=== PATIENT | male | born 1965 | race Caucasian/White ===

== ENCOUNTER 2018-04-27 02:05 | Observation (INO) | payer BC ==
[~2018-04-27] VITALS: Ht 177.8 cm; Wt 156.9 kg
--- NOTE | ~2018-04-27 | OP ---
PATIENT NAME: HUSEYIN DAVID MEDICAL RECORD: [id number] :69 LOCATION:D.M2 D.2115 ADMISSION DATE:04/27/18 SURGEON: BECCA MORALEZ MD DATE OF OPERATION: 04/29/2018 PROCEDURE: EGD with balloon dilatation, EGD with biopsy. TANK FILLER: Becca Moralez MD SCOPE: Olympus video colonoscope. MEDICATIONS PROVIDED: 240 mg of propofol, O2 4 liters. INDICATION FOR THE PROCEDURE: Atypical chest pain, nausea, vomiting, early satiety and dysphagia. FINDINGS: Informed consent was given. The patient was made comfortable with the above medications. After reaching an adequate level of sedation by slow IV push, the patient was placed on his left side. The endoscope was then advanced under direct visualization through the posterior pharyngeal area and advanced to the distal esophagus. At the distal esophageal area, a Schatzki's ring was appreciated which was noted to be stenotic and a CRE Microvasive balloon was placed in this same area, inflated to 60-Portuguese, held in place for 1 minute without complication. This balloon was then withdrawn. We noted that the patient had erosions at the distal esophageal area and biopsies were obtained. On entering the stomach, we did retroflex at that point and the cardia and fundus had mild inflammation. No ulcers, no erosions. We then proceeded to the end of stomach where streaking erythema, edema and congestion, was appreciated at the antral area. Biopsies were taken looking for the presence of Helicobacter pylori. A few erosions were seen. The duodenal bulb through the C-loop had significant inflammation with wall thickening, congestion, irritation. No ulcerations, but erosions were present. Photo documentation and biopsies were obtained. The second part of the duodenum also had a mild amount of inflammation and this area was also biopsied. The scope was then withdrawn. IMPRESSION: 1. Distal esophageal Schatzki's ring, determined to be stenotic dilated to 60-Portuguese without complication. 2. Erosive esophagitis. 3. Small sliding hiatal hernia. 4. Erosive distal antritis without ulcerations, biopsied. 5. Erosive inflamed mucosa in the duodenal bulb and C loop, biopsied. 6. Mild inflammation in the second part of the duodenum. Biopsies obtained. PLAN: We will continue the patient on Protonix at a dose of 40 mg p.o. every morning and add famotidine 40 mg p.o. at bedtime. The patient will also be provided with Carafate slurry 1 g p.o. q.i.d. At this point, we feel we can advance his diet to a soft diabetic diet. Return to clinic on a p.r.n. basis. Of note, the patient will be given instructions for reflux precautions. He is to avoid chocolate, tomato, citrus, caffeine, fatty foods, peppermint No tobacco, no alcohol. He should not eat late at night and should sit up for at least 2 hours after every meal. Should he reflux at night, he should sleep with the head of the bed elevated. OPERATIVE REPORT [id number] HUSEYIN DAVID TRANSINT:[id number] Voice Confirmation ID: [id number] DOCUMENT ID: [id number] BECCA MORALEZ MD at 1304 CC: WOODROW CAIN MD [id number] DICTATION DATE: 04/29/18 1549 BARBER SHOP MANAGER: 04/29/18 2018 DIS IN 04/30/18 [place] [id number] [place] [address]
--- NOTE | ~2018-04-27 | CN ---
PATIENT NAME:HUSEYIN DAVID MEDICAL RECORD: [id number] : 69 LOCATION:[facility] D.2115 ADMIT DATE: 04/27/18 ACCOUNT: [id number] CONSULTING PHYSICIAN: AAMNDA ZAMARRIPA MD REFERRING PHYSICIAN: WOODROW CAIN MD DATE OF CONSULTATION: 04/27/2018 HISTORY: A 52-year-old gentleman with somewhat of a vague cardiac history, has been told from [place] and [place] that he has a cardiomyopathy for various reasons and congenital, transferred from [place] with abnormal ECG and elevated CK and CK-MB. Troponin was negative. He also has a history of a TIA-type symptomatology with vision changes, these are typically positional, yesterday was complaining of blanca syncopal episode. Does not have any residual. At this point, has a strong family history of coronary artery disease as well as cerebrovascular disease. We were asked to see him concerning his cardiovascular status. PAST MEDICAL HISTORY: Includes, 1. History of hypertension. 2. Questionable history of cardiomyopathy. 3. Questionable history of cerebrovascular disease. 4. Diabetes mellitus. 5. Hypertension. MEDICATIONS: Include carvedilol 12.5 b.i.d., lisinopril 20 every day, amlodipine 10 daily, and metformin 500 b.i.d. SOCIAL HISTORY: Lives close to [place], works as a national dedicated truck driver. Able to take care of his ADLs. REVIEW OF SYSTEMS: The patient reports easy bruising but reports no swollen glands. The patient reports no fever, no night sweats, no significant weight gain, no significant weight loss. No significant exercise tolerance. The patient reports no dry eyes, no irritation, no vision change. Patient reports no difficulty hearing and no ear pain. Patient reports no frequent nose bleeds or nose and sinus problems. Patient reports on arm pain on exertion. No shortness of breath while lying down. No history of heart murmur. Patient reports no cough, no wheezing or coughing up blood. Patient reports no abdominal pain, no vomiting. Normal appetite. No diarrhea and not vomiting blood. No nausea and no constipation. Patient reports no incontinence. No difficulty urinating. No hematuria. No increased frequency. Patient reports no muscle aches. No weakness, no arthralgias, no back pain. No swelling of the extremities. Patient reports no abnormal mole, no jaundice, no rashes. Reports no loss of consciousness. No weakness and no numbness. No seizures, dizziness, or headaches. The patient reports no depression, no sleep disturbance, feeling safe in a relationship and no alcohol abuse. Patient reports on fatigue. Reports no runny nose or sinus pressure. No itching, no hives, and no frequent sneezing. PHYSICAL EXAMINATION: GENERAL: Pleasant gentleman in no acute distress. Appeared her stated age. VITAL SIGNS: 140/77, pulse 54 and regular. HEENT: Normocephalic, atraumatic. NECK: No JVD or bruit. HEART: Regular. CONSULT REPORT [id number] HUSEYIN DAVID LUNGS: Fair excursion, has some crackles, clear mostly with inspiration. ABDOMEN: Soft, nontender. EXTREMITIES: Pulses are 2+. There is 2+ edema. NEUROLOGIC: Grossly intact. DIAGNOSTIC DATA: ECG shows LVH, left axis deviation, left anterior fascicular block. IMPRESSION: Cardiomyopathy, acute coronary syndrome, and transient ischemic attack. At this point in time, we will plan for diagnostic angiography, intervention based on above. TRANSINT:[id number] Voice Confirmation ID: [id number] DOCUMENT ID: [id number] AMANDA ZAMARRIPA MD at 2229 CC: [id number] DICTATION DATE: 04/27/18850 REGISTERED NURSE SUPERVISOR: 04/27/18 1219 ADM IN [place] [id number] [place] [id number]
--- NOTE | ~2018-04-27 | MORECARE ---
CASE MANAGEMENT DISCHARGE SUMMARY PATIENT: HUSEYIN DAVID UNIT: [id number] ADM DATE: 04/27/18 AGE: 52 : [birth year] SEX: M ROOM/BED: D.2115 AUTHOR: REYNA FREED PHYSICIAN: REFERRING PHYSICIAN: WOODROW CAIN MD DATE OF SERVICE: 05/03/18 Discharge Plan Patient Name: HUSEYIN DAVID Facility: [facility]:[place] : 1965 Planned Disposition: Home Anticipated Discharge Date: 04/30/18 Discharge Date: 04/30/2018 Expected LOS: 3 Initial Reviewer: [email or web address] Initial Review Date: 05/03/2018 Generated: 05/03/18 9:53 am Patient Name: HUSEYIN DAVID Page [id number] at 0853 All edits/amendments must be made on the electronic document DICTATION DATE: 05/03/18851 AUTOMATIC DIE CUTTING MACHINE OPERATOR: KRISTINE 05/03/18851 RPT#: [id number] DC DATE:04/30/18 STATUS: DIS IN [facility] [address] [place] [address] END OF REPORT
--- NOTE | ~2018-04-27 | HEMODYNAMI ---
PATIENT:HUSEYIN DAVID MEDICAL RECORD: [id number] : 69 [facility] [id number] ADMISSION DATE: 04/27/18 Generatedon:04/27/201816:20 Patient name: HUSEYIN DAVID Patient #: [id number] SSN: : 1965 Date of study: 04/27/2018 Page: Of Hemodynamic Procedure Report Patient Data Patient Demographics Procedure consent was obtained First Name: HUSEYIN Gender: Male Last Name: FRANKIE : 1965 Patient #: [id number] Age: 52 year(s) Race: Unknown Additional ID: [id number] Contact details [address]: [address] [place] [address] State: [place] City: [place] Zip code: [address] Past Medical History Allergies: No known allergies Admission Admission Data Admission Date: 04/27/2018 Admission Time: 4:13 Room #: 2115 Lab Results Lab Result Date: 04/27/2018 Lab Result Time: 0:00 Biochemistry Name Units Result Min Max BUN mg/dl 16 --(---*)-- 7 18 Creatinine mg/dl 0.9 --(-*--)-- 0.6 1.3 CBC Name Units Result Min Max Hemoglobin g/dl 13.6 --(*---)-- 13.5 17.5 Procedure Procedure Types Cath Procedure Diagnostic Procedure LHC LHC w/Coronaries Sedation Charges Moderate Sedation up to 15 minutes Peripheral Cath Diagnostic Procedure Compotype Operator Peripheral Procedures Four Vessel Arteriogram Procedure Description Procedure Date Procedure Date: 04/27/2018 Procedure Start Time: 15:56 Procedure End Time: 16:13 Procedure Staff Name Function Joleen Ambrose RT Monitor Flor Wilkins RT Scrub Yasemin Ho RN Nurse Todd Briceño MD Performing Physician Procedure Data Cath Procedure Fluoroscopy Diagnostic fluoroscopy Total fluoroscopy Time: 3.8 time: 3.8 min min Diagnostic fluoroscopy Total fluoroscopy dose: dose: 1353 mGy 1353 mGy Contrast Material Contrast Material Type Amount (ml) Isovue 300 112 Entry Location Entry Primary Successful Side Size Upsize Upsize Entry Closure Succes sful Closure Location (Fr) 1 (Fr) 2 (Fr) Remarks Device Remarks Femoral Right 5 Fr Exoseal artery Estimated blood loss: 5 ml Diagnostic catheters Device Type Used For End Catheter Placement Medtronic Dexterity 5Fr Procedure JL 4.0 catheter (NO COST SUPPLY) Medtronic Dexterity 5Fr Procedure 3DRC catheter (NO COST SUPPLY) Medtronic Dexterity 5Fr Procedure Pigtail catheter(NO COST SUPPLY) Procedure Complications No complications Procedure Medications Medication Administration Route Dosage 0.9% NaCl I.V. 100 ml/hr Oxygen etCO2 Nasal cannula 2 l/min Lidocaine 2% added to field 20 Heparin Flush Bag added to field 2 bags (1000units/500ml NS) Versed I.V. 2 mg Fentanyl I.V. 50 mcg Hemodynamics Rest Heart Rate: 66 (bpm) Pressure Samples Time Site Value (mmHg) Purpose Heart Use Rate(bpm) 16:07 LV 174/8,24 Snapshot 66 16:08 LV 172/14,18 Snapshot 66 16:09 AO 178/91(129) Pullback 71 16:09 LV 181/7,34 Pullback 71 Gradients Valve Time Site 1 Site 2 Mean SEP/DFP Peak To Heart Use (mmHg) (sec/min) Peak Rate (mmHg) (bpm) Aortic 16:09 LV AO 9 17 3 71 181/7,34 178/91(129) Calculations Valve P-P Mean Valve Index Valve Source Name Gradient Area Flow (cm2) Aortic 3 9 3 9 Snapshots Pre Cath Intra NCS Post Cath Vital Signs Time Heart Resp SPO2 etCO2 NIBP (mmHg) Rhythm Pain Sedation Rate (ipm) (%) (mmHg) Status Level (bpm) 15:49:45 66 18 96 32.3 204/125(155) NSR 0 (11) 10(A) , No pain 15:54:25 66 19 97 20.4 212/130(169) NSR 0 (11) 10(A) , No pain 15:59:02 64 18 97 29.4 200/128(184) NSR 0 (11) 10(A) , No pain 16:03:40 67 18 98 27.2 212/138(174) NSR 0 (11) 10(A) , No pain 16:08:19 64 18 97 21.1 217/133(164) NSR 0 (11) 10(A) , No pain 16:13:02 72 20 98 22 196/135(163) NSR 0 (11) 10(A) , No pain Medications Time Medication Route Dose Verified Delivered Reason Notes Eff ectiveness by by 15:47:28 0.9% NaCl I.V. 100 Stuart Yasemin used for ml/hr [facility] Ho procedure MD ARDON 15:47:35 Oxygen etCO2 2 Stuart Yasemin used for Nasal l/min [place] [facility] procedure cannula MD ARDON 15:47:40 Lidocaine 2% added 20ml Stuart Stuart for local to vial [facility] anesthetic field MD WHITE 15:47:47 Heparin Flush added 2 Stuart Stuart used for Bag to bags [facility] procedure (1000units/500ml field MD WHITE NS) 15:54:09 Fentanyl I.V. 50 Todd Yasemin used for mcg [place] Ho fishing worker 15:54:48 Versed I.V. 2 mg Todd Yasemin used for Navarro rodriguez emergency spill response technician Log Time Note 15:19:15 Signed procedure consent form obtained from patient. 15:19:18 Flor Wilkins RT(R) sent for patient. Start room use. 15:19:18 Time tracking: Regular hours (M-F 7:00 - 5:00) 15:19:22 Plan of Care:Hemodynamics will remain stable., Cardiac rhythm will remain stable., Comfort level will be maintained., Respiratory function will remain adequate., Patient/ family verbilizes understanding of procedure., Procedure tolerated without complication., Recovers from procedure without complications.. 15:20:24 H&P Date Dictated: 04/27/2018 Within 30 days and on chart., H&P Addendum completed by physician on day of procedure. (MUST COMPLETE FOR ALL OUTPATIENTS). 15:20:40 Patient allergic to No known allergies ::43 Lab Result : BUN 16 mg/dl :: Lab Result : Hemoglobin 13.6 g/dl ::43 Lab Result : Creatinine 0.9 mg/dl 15:39:17 Patient received from Med II to CCL 1 Alert and oriented. Tansferred to table in Supine position. 15:39:19 Warm blankets applied, and rodney hugger turned on for patient comfort. 15:39:20 Correct patient and procedure confirmed by team. 15:39:20 ECG and BP/O2 sat monitors applied to patient. 15:47:12 Vital chart was started 15:47:28 0.9% NaCl 100 ml/hr I.V. was administered by Yasemin Ho RN; used for procedure; 15:47:35 Oxygen 2 l/min etCO2 Nasal cannula was administered by Yasemin Ho RN; used for procedure; 15:47:40 Lidocaine 2% 20ml vial added to field was administered by Stuart Sagastume MD; for local anesthetic; 15:47:47 Heparin Flush Bag (1000units/500ml NS) 2 bags added to field was administered by Stuart Sagastume MD; used for procedure; 15:52:36 Pre-procedure instructions explained to patient. 15:52:36 Pre-op teaching completed and patient verbalized understanding. 15:52:38 Family in patients room. 15:52:40 Patient NPO since Midnight. 15:53:11 Is the patient allergic to Iodine/contrast media? No. 15:53:13 Is patient on blood thinner?No 15:53:14 Patient diabetic? Yes. 15:53:15 If diabetic: On Metformin? Yes 15:53:18 If on Metformin: Last Dose? 04/25/2018 15:53:23 Previous problem with sedation/anesthesia? No ? 15:53:24 Snore? Yes 15:53:24 Sleep apnea? Yes 15:53:25 Deviated septum? No 15:53:27 Opens mouth fully? Yes 15:53:27 Sticks out tongue? Yes 15:53:31 Airway obstruction? Yes ASTHMA 15:53:35 Dentures? No ? 15:53:38 Pre procedure: right dorsailis pedis pulse 1+ Palpable, but thready & weak; easily obliterated 15:53:41 Patient pain scale 0/10 ?. 15:53:45 IV patent on arrival in right hand with 0.9% NaCl at [facility]. 15:53:47 Lab results completed and on chart. 15:53:49 Right groin area was prepped with chlora-prep and draped in sterile fashion 15:53:50 Alarms reviewed by R. N. 15:53:50 Sharps counted by scrub and verified by R.N. 15:53:51 --------ALL STOP TIME OUT------ 15:53:51 Final Timeout: patient, procedure, and site verified with staff and physician. All members of the team are in agreement. 15:53:54 Right groin site verified by team. 15:53:56 Physical assessment completed. ASA score P 2 - A patient with mild systemic disease as per Todd Briceño MD. 15:54:04 Sedation plan: IV Moderate Sedation Medication:Versed, Fentanyl 15:54:09 Fentanyl 50 mcg I.V. was administered by Yasemin Ho RN; used for procedure; 15:54:48 Versed 2 mg I.V. was administered by Yasemin Ho RN; used for procedure; 15:55:05 Procedure started. 15:55:05 Full Disclosure recording started 15:56:36 Local anesthetic to right femoral artery with Lidocaine 2% by Todd Briceño MD.INITIAL ACCESS ONLY 15:56:41 Zero performed for pressure channel P1 15:56:57 Use device set Femoral Dx 15:57:00 ACIST Syringe (33751) opened to sterile field. 15:57:01 Bag Decanter (2002) opened to sterile field. 15:57:02 ACIST Hand Control (97583) opened to sterile field. 15:57:02 ACIST Manifold (86188) opened to sterile field. 15:57:03 SHEATH Prelude 5Fr 0.035 ([id number]-6N-76-035) opened to sterile field. 15:57:05 Tegaderm 4 x 4 (1626W) opened to sterile field. 15:57:06 Medline Cath Pack ([id number]) opened to sterile field. 15:57:06 DIAGNOSTIC WIRE .035 260cm J wire (892677) opened to sterile field. 15:57:14 Zero performed for pressure channel P1 15:57:46 Zero performed for pressure channel P1 15:57:53 Zero performed for pressure channel P1 15:58:06 A 5 Fr sheath was inserted into the Right Femoral artery 15:58:13 Zero performed for pressure channel P1 15:58:59 Zero performed for pressure channel P1 15:59:24 A [employer] Dexterity 5Fr JL 4.0 catheter (NO COST SUPPLY) was advanced over the wire and used for Procedure. 16:00:44 LCA angiography performed. 16:00:46 Catheter exchanged over wire. 16:01:55 A Medtronic Dexterity 5Fr 3DRC catheter (NO COST SUPPLY) was advanced over the wire and used for Procedure. 16:02:21 RCA angiography performed. 16:04:02 Right carotid angiography performed. 16:05:39 Left carotid angiography performed. 16:06:11 Catheter exchanged over wire. 16:06:44 A Medtronic Dexterity 5Fr Pigtail catheter(NO COST SUPPLY) was advanced over the wire and used for Procedure. 16:07:09 LV gram done using YODER 16:07:11 Injector settings: Ml/sec: 10, Volume: 20, 16::44 LV hemodynamics recorded. 16:08:44 EF : 40 % 16:09: Catheter removed. 16:09:07 EXOSEAL 5Fr (EX500) opened to sterile field. 16:10:03 Sheath removed intact; hemostasis achieved with Exoseal to the Right Femoral artery. 16:10:14 Procedure ended.(Physican Out) 16:10:31 Fluoroscopy time 03.80 minutes. 16:10:37 Fluoroscopy dose: 1353 mGy 16:10:37 Flurop Dose total: 1353 16:10:47 Contrast amount:Isovue 300 112ml. 16:11:04 Sharps counted by scrub and verified by R.N. 16:11:08 Post-op/insertion site Right Femoral artery dressed using a 4 x 4 and Tegaderm. 16:11:12 Post right femoral artery:stable, soft, clean and dry 16:11:18 Post-procedure physical assessment completed. ASA score P 2 - A patient with mild systemic disease as per Todd Briceño MD. 16:11:21 Post procedure rhythm: sinus rhythm 16:11:23 Estimated blood loss: 5 ml 16:11:24 Post procedure instruction explained to patient.Patient verbalizes understanding. 16:11:25 Patient needs reinforcement of post procedure teaching. 16:12:08 Procedure type changed to Cath procedure, Diagnostic procedure, LHC, LHC w/Coronaries, Sedation Charges, Moderate Sedation up to 15 minutes, Peripheral Cath Diagnostic Procedure, Compotype Operator Peripheral Procedures, Four Vessel Arteriogram 16:12:50 Procedure and supply charges have been captured, reviewed, submitted and are correct. 16:12:53 Procedure Complication : No complications 16::55 Vital chart was stopped 16:12:55 See physician's report for complete and final results. 16:12:57 Report given to PCU. 16:12:59 Patient transfered to PCU with Bed. 16:13:03 Procedure ended. 16:13:03 Full Disclosure recording stopped 16:13:06 End room use (Document Last) Device Usage Item Name Manufacture Quantity Catalog Number Hospital Part Current M inimal Lot# / Charge Number Stock Stock Serial# Code ACIST Syringe Acist 1 68865 742204 171346 650022 2 0 (53757) [employer] Bag Decanter Microtek 1 2001S 868409 79257 754817 5 () [employer] Inc[employer] ACIST Hand Acist 1 70193 739608 547545 924191 5 Control (09532) [employer] ACIST Manifold Acist 1 19453 935623 823296 523740 5 (46303) [employer] SHEATH Prelude Merit 1 [id number] 997004 912891 752701 5 5Fr 0.035 Medical ([id number]) Tegaderm 4 x 4 3M 1 1626W 321146 841716 314126 5 (1626W) Medline Cath Medline 1 [id number] 142552 86836 882124 5 Pack ([id number]) DIAGNOSTIC WIRE [facility] [place] 1 159504 203269 084546 685776 3 0 .035 260cm J wire (340172) Medtronic Medtronic 1 [id number] 904697 909980 5 Dexterity 5Fr JL 4.0 catheter (NO COST SUPPLY) Medtronic Medtronic 1 [id number] 435926 035942 5 Dexterity 5Fr 3DRC catheter (NO COST SUPPLY) Medtronic Medtronic 1 [id number] 009649 773460 5 Dexterity 5Fr Pigtail catheter(NO COST SUPPLY) EXOSEAL 5Fr Cardinal 1 EX500 837194 977663 320755 1 0 (EX500) Health Signature Audit [place] Stage Time Signature Unsigned Intra-Procedure 04/27/2018 Joleen Ambrose 4:20:47 PM RT(R) Signatures Monitor : Joleen Ambrose Signature : RT Date : Time : [place] [id number] [place] [address]
[2018-04-27] MEDS ORDERED: ZESTORETIC 20-1 EACH PO ×2 (02:12→04:50)
[2018-04-27] MEDS ORDERED: BAYER CHEWABLE81 MG PO (02:12)
[2018-04-27] MEDS ORDERED: GLUCOPHAGE500 MG PO (02:12)
[2018-04-27 02:43] VITALS: BP 161/92
[2018-04-27 02:43] LABS: CKMB 14.5 U/L (0.0-3.6); CREATINE KINASE 390 UL (21-232); TROPONIN-I 0.023 ng/mL (0.000-0.060)
[2018-04-27 04:20] VITALS: BP 145/94
[2018-04-27] MEDS ORDERED: COREG12.5 MG PO (04:50)
[2018-04-27] MEDS ORDERED: NORVASC10 MG PO (04:51)
[2018-04-27 07:44] VITALS: BP 140/77
[2018-04-27 10:56] LABS: BASOPHILS 0.8 % (0-2); EOSINOPHILS 2.5 % (0-7); HEMATOCRIT 42.1 % (42.0-54.0); HEMOGLOBIN 13.6 g/dL (13.5-17.5); IMMATURE GRANULOCYTES 0.1 % (0-5); LYMPHOCYTES 32.7 % (15-50); MCH 29.6 pg (26.0-34.0); MCHC 32.3 g/dL (31.0-37.0); MCV 91.5 fL (80.0-100.0); MEAN PLATELET VOLUME 10.2 fL (7.4-10.4); MONOCYTES 4.8 % (2-11); NEUTROPHILS 59.1 % (40-80); PLATELET COUNT 141 10x3/uL (130-400); RDW 13.1 % (11.5-14.5); WBC 7.7 10x3/uL (4.8-10.8)
[2018-04-27 11:11] LABS: CALC OSMOLALITY 287 mosm/kg (275-300); CALCIUM 8.6 mg/dL (8.5-10.1); CARBON DIOXIDE 28.8 mmol/L (21.0-32.0); CHLORIDE - SERUM 105 mmol/L (98-107); CREATININE - SERUM 0.9 mg/dL (0.6-1.3); GLUCOSE 202 mg/dL (74-106); POTASSIUM - SERUM 3.9 mmol/L (3.5-5.1); SODIUM 141 mmol/L (136-145); UREA NITROGEN 16 mg/dL (7-18); eGFR NON AFRICAN AMERICAN > 90 mL/min (90-120)
[2018-04-27 11:24] VITALS: BP 152/87
[2018-04-27 13:42] VITALS: Ht 177.8 cm; Wt 156.9 kg
[2018-04-27 20:00] VITALS: BP 164/98
[2018-04-28] VITALS: BP 161/91
[2018-04-28 04:00] VITALS: BP 165/87
[2018-04-28 06:13] LABS: BASOPHILS 0.5 % (0-2); EOSINOPHILS 3.1 % (0-7); HEMATOCRIT 41.8 % (42.0-54.0); HEMOGLOBIN 13.3 g/dL (13.5-17.5); IMMATURE GRANULOCYTES 0.1 % (0-5); MCH 29.6 pg (26.0-34.0); MCHC 31.8 g/dL (31.0-37.0); MCV 92.9 fL (80.0-100.0); MEAN PLATELET VOLUME 10.4 fL (7.4-10.4); MONOCYTES 7.1 % (2-11); NEUTROPHILS 58.2 % (40-80); PLATELET COUNT 142 10x3/uL (130-400); RDW 13.2 % (11.5-14.5); WBC 7.7 10x3/uL (4.8-10.8)
[2018-04-28 06:18] LABS: INR 1.08 (0.85-1.17); PROTIME 13.6 SECONDS (11.6-15.0)
[2018-04-28 07:16] LABS: ALBUMIN 3.2 g/dL (3.4-5.0); ALKALINE PHOSPHATASE 44 U/L (46-116); ALT (SGPT) 54 U/L (10-68); AMYLASE - SERUM 44 U/L (25-115); BILIRUBIN - TOTAL 0.44 mg/dL (0.2-1.3); CALCIUM 8.6 mg/dL (8.5-10.1); CARBON DIOXIDE 31.2 mmol/L (21.0-32.0); CHLORIDE - SERUM 105 mmol/L (98-107); CHOL - HDL RATIO 5.1 ratio (2.3-4.9); CHOLESTEROL, TOTAL 167 mg/dL (0-200); CKMB 10.9 U/L (0.0-3.6); HDL CHOLESTEROL 33 mg/dL (32-96); LDL CHOLESTEROL 110 mg/dL (0-100); LDL-HDL RATIO 3.3 ratio (1.5-3.5); LIPASE 72 U/L (73-393); POTASSIUM - SERUM 3.7 mmol/L (3.5-5.1); PROTEIN - SERUM 6.8 g/dL (6.4-8.2); SODIUM 142 mmol/L (136-145); TRIGLYCERIDE 120 mg/dL (30-200); UREA NITROGEN 14 mg/dL (7-18); eGFR NON AFRICAN AMERICAN 84 mL/min (90-120)
[2018-04-28 07:38] LABS: CALC OSMOLALITY 285 mosm/kg (275-300); CREATINE KINASE 268 UL (21-232); GLUCOSE 129 mg/dL (74-106)
[2018-04-28 07:40] LABS: TROPONIN-I 0.147 ng/mL (0.000-0.060)
[2018-04-28 08:14] VITALS: BP 170/85
[2018-04-28 11:52] VITALS: BP 194/93
[2018-04-28 15:03] VITALS: BP 179/97
[2018-04-28 20:00] VITALS: BP 141/76
[2018-04-29] VITALS: BP 151/89
[2018-04-29 04:00] VITALS: BP 146/78
[2018-04-29 06:15] LABS: BASOPHILS 0.4 % (0-2); EOSINOPHILS 2.7 % (0-7); HEMATOCRIT 41.9 % (42.0-54.0); HEMOGLOBIN 13.6 g/dL (13.5-17.5); IMMATURE GRANULOCYTES 0.1 % (0-5); LYMPHOCYTES 25.2 % (15-50); MCH 29.4 pg (26.0-34.0); MCHC 32.5 g/dL (31.0-37.0); MEAN PLATELET VOLUME 10.7 fL (7.4-10.4); MONOCYTES 5.9 % (2-11); NEUTROPHILS 65.7 % (40-80); PLATELET COUNT 154 10x3/uL (130-400); RBC 4.63 10x6/uL (4.20-6.10)
[2018-04-29 06:17] LABS: MCV 90.5 fL (80.0-100.0)
[2018-04-29 06:43] LABS: CALC OSMOLALITY 282 mosm/kg (275-300); CALCIUM 8.8 mg/dL (8.5-10.1); CARBON DIOXIDE 31.8 mmol/L (21.0-32.0); CHLORIDE - SERUM 102 mmol/L (98-107); CREATININE - SERUM 1.1 mg/dL (0.6-1.3); GLUCOSE 138 mg/dL (74-106); POTASSIUM - SERUM 3.4 mmol/L (3.5-5.1); SODIUM 141 mmol/L (136-145); UREA NITROGEN 13 mg/dL (7-18); eGFR NON AFRICAN AMERICAN 75 mL/min (90-120)
[2018-04-29 07:48] VITALS: BP 151/79
[2018-04-29 11:31] VITALS: BP 141/89
[2018-04-29 20:00] VITALS: BP 155/98
[2018-04-30] VITALS: BP 139/98
[2018-04-30 04:00] VITALS: BP 127/83
[2018-04-30 06:05] LABS: HEMOGLOBIN 13.1 g/dL (13.5-17.5); LYMPHOCYTES 35.1 % (15-50); MCH 28.8 pg (26.0-34.0); MCHC 32.8 g/dL (31.0-37.0); MEAN PLATELET VOLUME 10.2 fL (7.4-10.4); NEUTROPHILS 55.9 % (40-80); PLATELET COUNT 146 10x3/uL (130-400); RBC 4.55 10x6/uL (4.20-6.10); RDW 12.5 % (11.5-14.5)
[2018-04-30 06:08] LABS: MCV 87.9 fL (80.0-100.0); WBC 6.7 10x3/uL (4.8-10.8)
[2018-04-30 06:17] LABS: CALC OSMOLALITY 282 mosm/kg (275-300); CALCIUM 8.8 mg/dL (8.5-10.1); CARBON DIOXIDE 30.5 mmol/L (21.0-32.0); CHLORIDE - SERUM 102 mmol/L (98-107); GLUCOSE 130 mg/dL (74-106); POTASSIUM - SERUM 3.5 mmol/L (3.5-5.1); SODIUM 140 mmol/L (136-145); eGFR NON AFRICAN AMERICAN 84 mL/min (90-120)
[2018-04-30 06:18] LABS: UREA NITROGEN 17 mg/dL (7-18)
[2018-04-30 08:27] VITALS: BP 141/87
[2018-04-30] MEDS ORDERED: PEPCID40 MG PO (11:14)
[2018-04-30] MEDS ORDERED: PROTONIX40 MG PO (11:14)
[2018-04-30 11:59] VITALS: BP 141/87
== END 2018-04-30 16:38 | disposition home or self-care (01) ==
LOC: D.ER 02:05 → OBSVTIME 04:13 → D.M2 04:13
PROVIDERS: Family Medicine; Internal Medicine Gastroenterology; Internal Medicine Interventional Cardiology; Internal Medicine Nephrology
DX: K22.2 Esophageal obstruction (principal); K22.10 Ulcer of esophagus without bleeding; K29.00 Acute gastritis without bleeding; K29.80 Duodenitis without bleeding; E78.5 Hyperlipidemia, unspecified; I87.8 Other specified disorders of veins; R68.81 Early satiety; E11.9 Type 2 diabetes mellitus without complications; I10 Essential (primary) hypertension; K21.0 Gastro-esophageal reflux disease with esophagitis; F17.213 Nicotine dependence, cigarettes, with withdrawal

== ENCOUNTER 2018-11-16 08:52 | Observation (INO) | payer BC ==
[2018-11-16] VITALS (8 sets, daily range): BP systolic 144–194; BP diastolic 77–114
[~2018-11-16] VITALS: Ht 177.8 cm; Wt 171.3 kg
--- NOTE | ~2018-11-16 | HEMODYNAMI ---
PATIENT:HUSEYIN DAVID MEDICAL RECORD: [id number] : 69 LOCATION:[address] ADMISSION DATE: 11/16/18 Generatedon:11/17/201813:18 Patient name: HUSEYIN DAVID Patient #: [id number] SSN: : 1965 Date of study: 11/17/2018 Page: Of Hemodynamic Procedure Report Patient Data Patient Demographics Procedure consent was obtained First Name: HUSEYIN Gender: Male Last Name: FRANKIE : 1965 Patient #: [id number] Age: 53 year(s) Race: Unknown Additional ID: [id number] Contact details Address: [address] [place] [address] State: [place] City: [place] Zip code: [address] Past Medical History Allergies: No known allergies Admission Admission Data Admission Date: 11/16/2018 Admission Time: 9:59 Room #: D.2108 Height (in.): 69.69 BSA: 2.68 (m2) Height (cm.): 177 BMI: 52.35 (kg/m2) Weight (lbs.): 361.56 Weight (kg.): 164 Lab Results Lab Result Date: 11/17/2018 Lab Result Time: 9:25 Biochemistry Name Units Result Min Max BUN mg/dl 16 --(---*)-- 7 18 Creatinine mg/dl 1 --(--*-)-- 0.6 1.3 CBC Name Units Result Min Max Hematocrit % 42.7 --(*---)-- 42 54 Hemoglobin g/dl 13.9 --(*---)-- 13.5 17.5 Procedure Procedure Types Cath Procedure Diagnostic Procedure [facility] w/Coronaries Sedation Charges Moderate Sedation up to 15 minutes Procedure Description Procedure Date Procedure Date: 11/17/2018 Procedure Start Time: 13:10 Procedure End Time: 13:18 Procedure Staff Name Function Stuart Sagastume MD Performing Physician Joleen Ambrose RT Scrub Andry Thao RN Nurse Mahamed Gutierrez RT Monitor Procedure Data Cath Procedure Fluoroscopy Diagnostic fluoroscopy Total fluoroscopy Time: 2.5 time: 2.5 min min Diagnostic fluoroscopy Total fluoroscopy dose: dose: 1050 mGy 1050 mGy Contrast Material Contrast Material Type Amount (ml) Isovue 300 70 Entry Location Entry Primary Successful Side Size Upsize Upsize Entry Closure [place] ccessful Closure Location (Fr) 1 (Fr) 2 (Fr) Remarks Device Remarks Radial Right 6 Fr Mechanical artery Short Compression Estimated blood loss: 5 ml Diagnostic catheters Device Type Used For End Catheter Placement DIAGNOSTIC [place] 110cm 5 Procedure Fr catheter ([id number]) DIAGNOSTIC Pigtail 5Fr Procedure catheter ([id number]) Procedure Complications No complications Procedure Medications Medication Administration Route Dosage 0.9% NaCl I.V. 100 ml/hr Oxygen etCO2 Nasal cannula 2 l/min Heparin Flush Bag added to field 1 bags (1000units/500ml NS) Lidocaine 2% added to field 20 Radial Cocktail added to field 1 syringe (Verapamil 2mg/Nitro 400mcg/Heparin 1500units) Versed I.V. 1 mg Fentanyl I.V. 50 mcg Versed I.V. 1 mg Radial Cocktail I.A. 1 syringe (Verapamil 2mg/Nitro 400mcg/Heparin 1500units) Hemodynamics Rest BSA: 2.68 (m2) HGB: 13.9 (g/dl) O2 Consumption: Estimated: 307.86 (ml/min) O2 Co nsumption indexed: Estimated:114.87 (ml/min/m) Heart Rate: 58 (bpm) Pressure Samples Time Site Value (mmHg) Purpose Heart Use Rate(bpm) 13:15 LV 138/6,16 Snapshot 61 13:16 AO 134/74(99) Pullback 62 13:16 LV 132/10,10 Pullback 62 Gradients Valve Time Site 1 Site 2 Mean SEP/DFP Peak To Heart Use (mmHg) (sec/min) Peak Rate (mmHg) (bpm) Aortic 13:16 LV AO 0 14 0 62 132/10,10 134/74(99) Calculations Valve P-P Mean Valve Index Valve Source Name Gradient Area Flow (cm2) Aortic 0 0 0 0 Snapshots Pre Cath Intra NCS Post Cath Vital Signs Time Heart Resp SPO2 etCO2 NIBP (mmHg) Rhythm Pain Sedation Rate (ipm) (%) (mmHg) Status Level (bpm) 12:57:50 59 17 98 45.7 163/98(142) NSR 0 (11) 10(A) , No pain 13:02:18 58 15 94 39 169/95(146) NSR 0 (11) 10(A) , No pain 13:06:34 54 16 94 44.2 144/89(126) NSR 0 (11) 10(A) , No pain 13:10:56 55 17 93 28.5 151/93(121) NSR 0 (11) 9(A) , No pain 13:15:24 62 19 92 37.4 133/83(114) NSR 0 (11) 9(A) , No pain Medications Time Medication Route Dose Verified Delivered Reason Notes Effectiveness by by 12:59:11 0.9% NaCl I.V. 100 Andry Andry Per ml/hr Master Thao physician RN RN 12:59:20 Oxygen etCO2 2 l/min Andry Andry for low 02 Nasal Lorigan Master sats cannula RN RN 12:59:30 Heparin Flush added 1 bags Andry Andry used for Bag to Master Thao procedure (1000units/500ml field ARDON RN NS) 12:59:39 Lidocaine 2% added 20ml Andry Andry for local to vial Lorigan Lorigan anesthetic field ARDON RN 12:59:54 Radial Cocktail added 1 Andry Andry used for (Verapamil to syringe Lorigan Lorigan procedure 2mg/Nitro field ARDON RN 400mcg/Heparin 1500units) 13:05:58 Versed I.V. 1 mg Andry Andry for sedation Master Thao RN RN 13:06:10 Fentanyl I.V. 50 mcg Andry Andry for sedation Master Thao RN RN 13:09:31 Versed I.V. 1 mg Andry Andry for sedation Master Thao RN RN 13:11:04 Radial Cocktail I.A. 1 Andry Stuart for (Verapamil syringe Lorigan Tanika vasodilation 2mg/Nitro REVA WHITE 400mcg/Heparin 1500units) Procedure Log Time Note 12:31:45 Signed procedure consent form obtained from patient. 12:31:53 Diagnostic Cath status Urgent 12:31:54 Time tracking: Regular hours (M-F 7:00 - 5:00) 12:31:58 Plan of Care:Hemodynamics will remain stable., Cardiac rhythm will remain stable., Comfort level will be maintained., Respiratory function will remain adequate., Patient/ family verbilizes understanding of procedure., Procedure tolerated without complication., Recovers from procedure without complications.. 12:32:10 Patient Weight : 361.56 lbs 12:32:31 Patient Height : 69.69 inches 12:32:42 Patient allergic to No known allergies 12:36:17 Andry Thao RN sent for patient. Start room use. 12:44:18 Patient received from Med II to CCL 2 Alert and oriented. Tansferred to table in Supine position. 12:44:19 Warm blankets applied, and rodney hugger turned on for patient comfort. 12:44:20 Correct patient and procedure confirmed by team. 12:44:27 H&P Date Dictated: 11/16/2018 Within 30 days and on chart.. 12:56:25 Vital chart was started 12:58:49 Baseline sample Acquired. 12:58:51 Rhythm: sinus rhythm 12:58:52 Full Disclosure recording started 12:58:53 Pre-procedure instructions explained to patient. 12:58:54 Pre-op teaching completed and patient verbalized understanding. 12:58:57 Family in patients room. 12:58:58 Patient NPO since Breakfast. 12:59:00 Is the patient allergic to Iodine/contrast media? No. 12:59:04 Is patient on blood thinner?No 12:59:11 0.9% NaCl 100 ml/hr I.V. was administered by Andry Thao RN; Per physician; 12:59:11 Patient diabetic? Yes. 12:59:12 If diabetic: On Metformin? Yes 12:59:15 If on Metformin: Last Dose? 11/16/2018 12:59:18 Previous problem with sedation/anesthesia? No ? 12:59:18 Snore? Yes 12:59:20 Oxygen 2 l/min etCO2 Nasal cannula was administered by Andry Thao RN; for low 02 sats; 12:59:20 Sleep apnea? No 12:59:20 Deviated septum? No 12:59:21 Opens mouth fully? Yes 12:59:22 Sticks out tongue? Yes 12:59:26 Airway obstruction? Yes asthma 12:59:28 Dentures? No ? 12:59:30 Heparin Flush Bag (1000units/500ml NS) 1 bags added to field was administered by Andry Thao RN; used for procedure; 12:59:31 Pre procedure: right dorsailis pedis pulse Doppler 12:59:33 Patient pain scale 0/10 ?. 12:59:35 Modified Vernon's test Ulnar < 7 seconds 12:59:39 Lidocaine 2% 20ml vial added to field was administered by Andry Thao RN; for local anesthetic; 12:59:54 Radial Cocktail (Verapamil 2mg/Nitro 400mcg/Heparin 1500units) 1 syringe added to field was administered by Andry Thao RN; used for procedure; 13:00:06 IV patent on arrival in left antecubital with 0.9% NaCl at [facility]. 13:00:40 Lab Result : BUN 16 mg/dl 13:00:40 Lab Result : Hemoglobin 13.9 g/dl 13:00:40 Lab Result : Creatinine 1 mg/dl 13:00:40 Lab Result : Hematocrit 42.7 % 13:00:42 Lab results completed and on chart. 13:00:44 Right Radial & Right Groin area was prepped with chlora-prep and draped in sterile fashion 13:00:45 Alarms reviewed by R. N. 13:00:46 Sharps counted by scrub and verified by R.N. 13:00:47 Use device set Radial Dx or PCI 13:00:48 ACIST Syringe (45536) opened to sterile field. 13:00:48 Medline Cath Pack ([id number]) opened to sterile field. 13:00:49 Bag Decanter (2002S) opened to sterile field. 13:00:50 ACIST Hand Control (65521) opened to sterile field. 13:00:50 ACIST Manifold (07188) opened to sterile field. 13:00:50 Tegaderm 4 x 4 (1626W) opened to sterile field. 13:00:51 MBrace Wrist Support ([id number]) opened to sterile field. 13:00:52 DIAGNOSTIC WIRE .035 260cm J wire (161097) opened to sterile field. 13:00:52 SHEATH 6FR Slender (17-9569) opened to sterile field. 13:01:04 Physician arrived 13:01:04 --------ALL STOP TIME OUT------ 13:01:04 Final Timeout: patient, procedure, and site verified with staff and physician. All members of the team are in agreement. 13:01:06 Right Radial & Right Groin site verified by team. 13:01:08 Maximum allowable Isovue 300 dose 300ml. Physician notified. (300ml for normal creatinines. For patients with creatinine of 1.7 or higher multiply weight(kg) x 5 divided by creatinine.) 13:01:11 Fire Safety Assessment: A--An alcohol-based skin anteseptic being used preoperatively., C--Open oxygen or nitrous oxide is being used., D--An ESU, laser, or fiber-optic light is being used. 13:01:14 Physical assessment completed. ASA score P 2 - A patient with mild systemic disease as per Stuart Sagastume MD. 13:01:16 Sedation plan: IV Moderate Sedation Medication:Versed, Fentanyl 13:05:58 Versed 1 mg I.V. was administered by Andry Thao RN; for sedation; 13:06:10 Fentanyl 50 mcg I.V. was administered by Andry Thao RN; for sedation; 13:09:31 Versed 1 mg I.V. was administered by Andry Thao RN; for sedation; 13:09:34 Procedure started. 13:10:05 Local anesthetic to right radial artery with Lidocaine 2% by Stuart Sagastume MD.INITIAL ACCESS ONLY 13:10:13 A 6 Fr Short sheath was inserted into the Right Radial artery 13:10:14 Zero performed for pressure channel P1 13:10:24 A DIAGNOSTIC [place] 110cm 5 Fr catheter (076415) was advanced over the wire and used for Procedure. 13:11:04 Radial Cocktail (Verapamil 2mg/Nitro 400mcg/Heparin 1500units) 1 syringe I.A. was administered by Stuart Sagastume MD; for vasodilation; 13:12:00 LCA angiography performed. 13:13:39 RCA angiography performed. 13:14:18 Catheter exchanged over wire. 13:14:21 A DIAGNOSTIC Pigtail 5Fr catheter (433190N) was advanced over the wire and used for Procedure. 13:15:18 TR BAND Large ([id number]) opened to sterile field. 13:15:29 LV gram done using YODER 13:15:31 Injector settings: Ml/sec: 10, Volume: 20, 13:15:33 LV hemodynamics recorded. 13:16:09 EF : 50 % 13:16:14 Catheter removed. 13:16:26 Sheath removed intact; hemostasis achieved with Mechanical Compression to the Right Radial artery. 13:16:27 Procedure ended.(Physican Out) 13:16:35 Fluoroscopy time 02.50 minutes. 13:16:40 Flurop Dose total: 1050 13:16:40 Fluoroscopy dose: 1050 mGy 13:16:44 Contrast amount:Isovue 300 70ml. 13:16:45 Sharps counted by scrub and verified by R.N. 13:16:47 TR band inflated with 12cc of air. 13:16:48 Insertion/operative site no bleeding no hematoma. 13:16:53 Post right radial artery:stable, soft, clean and dry 13:16:54 Post Procedure Pulses reassessed and unchanged 13:16:56 Post-procedure physical assessment completed. ASA score P 2 - A patient with mild systemic disease as per Stuart Sagastume MD. 13:16:59 Post procedure rhythm: unchanged. 13:17:01 Estimated blood loss: 5 ml 13:17:03 Post procedure instruction explained to patient.Patient verbalizes understanding. 13:17:03 Patient needs reinforcement of post procedure teaching. 13:17:14 Procedure type changed to Cath procedure, Diagnostic procedure, LHC, LHC w/Coronaries, Sedation Charges, Moderate Sedation up to 15 minutes 13:17:50 Procedure and supply charges have been captured, reviewed, submitted and are correct. 13:17:52 Procedure Complication : No complications 13:17:54 Vital chart was stopped 13:17:54 See physician's report for complete and final results. 13:18:01 Report given to PCU. 13:18:03 Patient transfered to PCU with Stretcher. 13:18:04 Procedure ended. 13:18:04 Full Disclosure recording stopped 13:18:09 End room use (Document Last) Device Usage Item Name Manufacture Quantity Catalog Hospital Part Current Minimal Lot# / Number Charge Number Stock Stock Serial# Code EULALIO Lópezist 1 23230 [id number] 174016 003108 20 Syringe WonderHowTo (48928) Systems Inc Medline Medline 1 [id number] 366956 45248 544836 5 Cath Pack ([id number]) Bag Microtek 1 443577 40118 119184 5 DecMonoco, Inc. Medical Inc. () ACIST Hand Acist 1 94791 645357 350280 253514 5 Control Medical (69112) Systems Inc ACIST Acist 1 20240 802902 486543 881650 5 Manifold Medical (03253) Systems Inc Tegaderm 4 3M 1 1626W 458361 831860 781364 5 x 4 (1626W) MBrace Advanced 1 140-0250-00 078494 65519 463599 5 Wrist Vascular Support Dynamics ([id number]) DIAGNOSTIC [place] 1 408073 814472 561439 498292 30 WIRE .035 260cm J wire (257717) SHEATH 6FR Terumo 1 [id number] 643797 009144 019624 5 Slender (80-1060) DIAGNOSTIC Terumo 1 40-8523 029280 028258 071336 5 [place] 110cm 5 Fr catheter (939499) DIAGNOSTIC Cardinal 1 [id number] 969007 960326 149222 5 Pigtail 5Fr Health catheter (692733X) TR BAND Terumo 1 [id number] 261592 251535 898624 40 Large ([id number]) Signature Audit Rowe Stage Time Signature Unsigned Intra-Procedure 11/17/2018 Mahamed Gutierrez 1:18:29 PM RT(R) Signatures Monitor : Mahamed Gutierrez RT Signature : Date : Time : [facility] [address] [place] [address]
[~2018-11-16 08:52] MED LIST: BAYER CHEWABLE81 MG PO; COREG12.5 MG PO; GLUCOPHAGE500 MG PO; NORVASC10 MG PO; PEPCID40 MG PO; PROTONIX40 MG PO; ZESTORETIC 20-1 EACH PO
[2018-11-16 09:48] LABS: ALBUMIN 3.5 g/dL (3.4-5.0); ALKALINE PHOSPHATASE 53 U/L (46-116); ALT (SGPT) 85 U/L (10-68); BILIRUBIN - TOTAL 0.51 mg/dL (0.2-1.3); CALC OSMOLALITY 279 mosm/kg (275-300); CALCIUM 8.8 mg/dL (8.5-10.1); CHLORIDE - SERUM 104 mmol/L (98-107); GLUCOSE 154 mg/dL (74-106); POTASSIUM - SERUM 3.6 mmol/L (3.5-5.1); PROTEIN - SERUM 7.3 g/dL (6.4-8.2); SODIUM 138 mmol/L (136-145); UREA NITROGEN 16 mg/dL (7-18); eGFR NON AFRICAN AMERICAN 84 mL/min (90-120)
[2018-11-16 09:51] LABS: BASOPHILS 0.6 % (0-2); EOSINOPHILS 1.9 % (0-7); HEMATOCRIT 42.7 % (42.0-54.0); HEMOGLOBIN 13.9 g/dL (13.5-17.5); IMMATURE GRANULOCYTES 0.1 % (0-5); LYMPHOCYTES 26.5 % (15-50); MCH 28.6 pg (26.0-34.0); MCHC 32.6 g/dL (31.0-37.0); MCV 87.9 fL (80.0-100.0); MEAN PLATELET VOLUME 10.6 fL (7.4-10.4); NEUTROPHILS 65.9 % (40-80); PLATELET COUNT 145 10x3/uL (130-400); RBC 4.86 10x6/uL (4.20-6.10); RDW 13.8 % (11.5-14.5); WBC 8.5 10x3/uL (4.8-10.8)
[2018-11-16 09:56] LABS: LIPASE 497 U/L (73-393); PRO BNP 1010 pg/mL (0-125); TROPONIN-I 0.033 ng/mL (0.000-0.060)
[2018-11-16] MEDS ORDERED: BUMEX2 MG PO (15:39)
--- NOTE | 2018-11-16 16:00 | NUR ---
ARRIVES TO ROOM VIA STRETCHER FROM ER. ALERT AND ORIENTED X4. AMBULATES TO BED. BILATERAL LOWER EXTREMITIES EDEMATOUS. SINUS RHYTHM ON TELEMETRY. CONSENTS FOR MILK RECEIVER SIGNED ON CHART. REFUSE SCDs. CONTINUE ADMISSION PROCESS. CONTINUE PLAN OF CARE AND SAFETY PRECAUTIONS.
[2018-11-16 18:20] LABS: CREATINE KINASE 530 UL (21-232); TROPONIN-I 0.039 ng/mL (0.000-0.060)
--- NOTE | 2018-11-16 19:20 | NUR ---
RESUMING CARE PT A&O BREATH SOUNDS EVEN IV LFT HAND SL AND RT AC SL NO C/O PAIN OR DISTRESS AT THIS TIME CL IN REACH WILL CONT TO MONITOR
[2018-11-17] VITALS: BP 124/72
[2018-11-17 00:05] LABS: CKMB 14.3 U/L (0.0-3.6); CREATINE KINASE 493 UL (21-232); TROPONIN-I 0.039 ng/mL (0.000-0.060)
--- NOTE | 2018-11-17 03:43 | NUR ---
I have reviewed this patient and I concur with the Shift Assessment completed by the Licensed Practical Nurse today this shift.
[2018-11-17 04:00] VITALS: BP 145/78
[2018-11-17 05:49] LABS: BASOPHILS 0.5 % (0-2); EOSINOPHILS 2.6 % (0-7); HEMATOCRIT 42.8 % (42.0-54.0); IMMATURE GRANULOCYTES 0.2 % (0-5); LYMPHOCYTES 21.6 % (15-50); MCH 28.7 pg (26.0-34.0); MCHC 32.7 g/dL (31.0-37.0); MCV 87.9 fL (80.0-100.0); MEAN PLATELET VOLUME 10.5 fL (7.4-10.4); MONOCYTES 7.9 % (2-11); NEUTROPHILS 67.2 % (40-80); PLATELET COUNT 133 10x3/uL (130-400); RBC 4.87 10x6/uL (4.20-6.10); RDW 13.8 % (11.5-14.5); WBC 8.1 10x3/uL (4.8-10.8)
[2018-11-17 06:19] LABS: ALBUMIN 3.6 g/dL (3.4-5.0); ALKALINE PHOSPHATASE 57 U/L (46-116); ALT (SGPT) 85 U/L (10-68); BILIRUBIN - TOTAL 0.77 mg/dL (0.2-1.3); CALC OSMOLALITY 281 mosm/kg (275-300); CALCIUM 8.9 mg/dL (8.5-10.1); CARBON DIOXIDE 32.9 mmol/L (21.0-32.0); CHLORIDE - SERUM 102 mmol/L (98-107); CKMB 12.1 U/L (0.0-3.6); CREATINE KINASE 443 UL (21-232); CREATININE - SERUM 1.2 mg/dL (0.6-1.3); GLUCOSE 136 mg/dL (74-106); POTASSIUM - SERUM 3.7 mmol/L (3.5-5.1); PROTEIN - SERUM 7.1 g/dL (6.4-8.2); SODIUM 140 mmol/L (136-145); TROPONIN-I 0.033 ng/mL (0.000-0.060); UREA NITROGEN 16 mg/dL (7-18); eGFR NON AFRICAN AMERICAN 68 mL/min (90-120)
[2018-11-17 09:06] VITALS: BP 186/86
[2018-11-17 12:24] VITALS: BP 145/93
--- NOTE | 2018-11-17 13:36 | NUR ---
ARRIVE TO ROOM VIA BED FROM AVIONICS MECHANIC. BP-150/74, HR-53 SINUS JA, R-20, 02-96% RA, T-97.5. RT WRIST TR BAND INTACT. FREE FROM BLEEDING. FREE FROM HEMATOMA. CONTINUE PLAN OF CARE AND SAFETY PRECAUTIONS.
[2018-11-17 15:45] LABS: CHOL - HDL RATIO 4.3 ratio (2.3-4.9); LDL-HDL RATIO 2.9 ratio (1.5-3.5)
--- NOTE | 2018-11-17 19:39 | NUR ---
PT IN BED. REMOVED WRIST IMMOBILIZER PER REQUEST. DENIES FURTHER NEEDS.
[2018-11-17 20:00] VITALS: BP 124/98
[2018-11-17 21:40] VITALS: BP 124/98
[2018-11-18] VITALS (7 sets, daily range): BP systolic 124–153; BP diastolic 62–84; Ht 177.8 cm; Wt 171.3 kg
[2018-11-18 05:37] LABS: BASOPHILS 0.4 % (0-2); EOSINOPHILS 3.5 % (0-7); HEMATOCRIT 42.1 % (42.0-54.0); HEMOGLOBIN 13.8 g/dL (13.5-17.5); IMMATURE GRANULOCYTES 0.1 % (0-5); LYMPHOCYTES 27.8 % (15-50); MCH 28.7 pg (26.0-34.0); MCHC 32.8 g/dL (31.0-37.0); MCV 87.5 fL (80.0-100.0); MEAN PLATELET VOLUME 10.2 fL (7.4-10.4); MONOCYTES 8.4 % (2-11); NEUTROPHILS 59.8 % (40-80); PLATELET COUNT 147 10x3/uL (130-400); RBC 4.81 10x6/uL (4.20-6.10); RDW 13.9 % (11.5-14.5); WBC 7.5 10x3/uL (4.8-10.8)
[2018-11-18 06:16] LABS: ALBUMIN 3.3 g/dL (3.4-5.0); ALKALINE PHOSPHATASE 52 U/L (46-116); ALT (SGPT) 66 U/L (10-68); CALC OSMOLALITY 281 mosm/kg (275-300); CARBON DIOXIDE 31.2 mmol/L (21.0-32.0); CHLORIDE - SERUM 100 mmol/L (98-107); CREATININE - SERUM 1.1 mg/dL (0.6-1.3); GLUCOSE 134 mg/dL (74-106); POTASSIUM - SERUM 3.4 mmol/L (3.5-5.1); PROTEIN - SERUM 7.2 g/dL (6.4-8.2); SODIUM 140 mmol/L (136-145); UREA NITROGEN 16 mg/dL (7-18); eGFR NON AFRICAN AMERICAN 75 mL/min (90-120)
--- NOTE | 2018-11-18 07:30 | NUR ---
PT SITTING UP IN BED ALERT AND ORIENTED X4. PT AT BEDSIDE. PT DENIES ANY PAIN OR NEEDS AT THIS TIME. BED LOW CALL LIGHT WITHIN REACH. WILL CONTINUE TO MONITOR.
--- NOTE | 2018-11-18 11:09 | NUR ---
Bilateral unna boots in place. Pt states they were applied yesterday.
--- NOTE | 2018-11-18 12:00 | NUR ---
I have reviewed this patient and I concur with the Shift Assessment completed by the Licensed Practical Nurse today this shift.
--- NOTE | 2018-11-18 19:04 | NUR ---
PT IN BED. PROVIDED BIGGER GOWN PER REQUEST DENIES FURTHER NEEDS AT THIS TIME.
[2018-11-19] VITALS: BP 118/50
[2018-11-19 04:00] VITALS: BP 123/69
[2018-11-19 06:11] LABS: BASOPHILS 0.5 % (0-2); EOSINOPHILS 3.3 % (0-7); IMMATURE GRANULOCYTES 0.3 % (0-5); LYMPHOCYTES 28.9 % (15-50); MCH 28.8 pg (26.0-34.0); MCHC 32.6 g/dL (31.0-37.0); MCV 88.3 fL (80.0-100.0); MEAN PLATELET VOLUME 10.6 fL (7.4-10.4); MONOCYTES 9.5 % (2-11); NEUTROPHILS 57.5 % (40-80); PLATELET COUNT 151 10x3/uL (130-400); RBC 5.21 10x6/uL (4.20-6.10); RDW 13.9 % (11.5-14.5); WBC 7.8 10x3/uL (4.8-10.8)
[2018-11-19 06:30] LABS: ALBUMIN 3.5 g/dL (3.4-5.0); ALKALINE PHOSPHATASE 55 U/L (46-116); ALT (SGPT) 62 U/L (10-68); BILIRUBIN - TOTAL 0.74 mg/dL (0.2-1.3); CALC OSMOLALITY 281 mosm/kg (275-300); CALCIUM 9.2 mg/dL (8.5-10.1); CARBON DIOXIDE 30.2 mmol/L (21.0-32.0); CHLORIDE - SERUM 100 mmol/L (98-107); CREATININE - SERUM 1.1 mg/dL (0.6-1.3); GLUCOSE 140 mg/dL (74-106); POTASSIUM - SERUM 3.2 mmol/L (3.5-5.1); PROTEIN - SERUM 7.6 g/dL (6.4-8.2); SODIUM 139 mmol/L (136-145); UREA NITROGEN 18 mg/dL (7-18); eGFR NON AFRICAN AMERICAN 75 mL/min (90-120)
[2018-11-19 07:46] VITALS: BP 121/62
--- NOTE | 2018-11-19 09:31 | NUR ---
PT SITTING UP IN BED ALERT AND ORIENTED RR EVEN AND UNLABORED. PT NPO FOR PROCEDURE THIS AM. AT BEDSIDE. PT DENIES ANY PAIN OR NEEDS AT THIS TIME BED LOW CALL LIGHT WITHIN REACH. WILL CONTINUE TO MONITOR.
[2018-11-19 11:33] VITALS: BP 131/82
--- NOTE | 2018-11-19 14:22 | NUR ---
PT WAITING PATIENTLY FOR PROCEDURE. FSBS-111 AT THIS TIME. VITALS STABLE. PT AT BEDSIDE. PT REALLY WANTS TO TRY AND GO HOME AFTER PROCEDURE. DENIES ANY PAIN OR NEEDS AT THIS TIME. WILL CONTINUE TO MONITOR.
[2018-11-19 15:10] VITALS: BP 137/56
--- NOTE | 2018-11-19 17:00 | NUR ---
PT WAS BROUGHT BACK TO ROOM BY OR TECH AND STATED, "WE GOT THE WRONG PATIENT." PT AND VERY UPSET AND REQUESTED MANAGEMENT TECH. WILL CONTINUE TO MONITOR.
--- NOTE | 2018-11-19 17:00 | NUR ---
PT LEFT FOR PROCEDURE WITH HOSPITAL STAFF. PT VITALS STABLE.
--- NOTE | 2018-11-19 17:35 | NUR ---
PT COMES TO NURSES STATION AND IS VERY UPSET. SHE STATES, "WE WANT TO LEAVE THIS PLACE NOW!" CALLED PAULA COPY CLERK SHE STATED SHE WAS SPEAKING WITH DR. SUAREZ ABOUT MATTER.
--- NOTE | 2018-11-19 17:48 | NUR ---
Pt called [employer] for information on delay of pts surgery with Dr. Medina. States pt hasn't eaten since 5pm yesterday and is a diabetic. Spoke with Jean Claude RN (Recovery). Dr. Medina unable to give time for pts surgery related to case currently going. Dr. Medina stated if pt wanted to eat and go home, we could reschedule thru outpt next week. He would do whatever they wanted to do. Pt decided to come back next week if he could have surgery first thing morning. Dr. Medina agreed to make Mr. Bryan case his first on November 24 at 0800. Notified pt and . Informed , Stephanie, that scheduling would call her Thursday for information on checkin .
--- NOTE | 2018-11-19 18:21 | NUR ---
PT IV'S IN LEFT HAND AND RIGHT AC DC'D WITH CATHETER TIP IN PLACE. DISCHARGE INSTRUCTIONS GIVEN TO PT AND PROCEDURE SCHEDULED FOR 11/24/18 @ 0800.PT WHEELED TO FRONT OF BUILDING BY STAFF.
--- NOTE | 2018-11-22 08:18 | MORECARE ---
CASE MANAGEMENT DISCHARGE SUMMARY PATIENT: HUSEYIN DAVID UNIT: [id number] ADM DATE: 11/16/18 AGE: 53 : [birth year] SEX: M ROOM/BED: D.2108 AUTHOR: REYNA FREED PHYSICIAN: REFERRING PHYSICIAN: JANET CASAS MD DATE OF SERVICE: 11/22/18 Discharge Plan Patient Name: HUSEYIN DAVID Facility: [facility] : 1965 Planned Disposition: Home Anticipated Discharge Date: 11/19/18 Discharge Date: 11/19/2018 Expected LOS: 3 Initial Reviewer: [email or web address] Initial Review Date: 11/22/2018 Generated: 11/22/18 9:18 am Patient Name: HUSEYIN DAVID Page 39131 at 0818 All edits/amendments must be made on the electronic document DICTATION DATE: 11/22/18816 BELT LOOP MACHINE OPERATOR: KRISTINE 11/22/18816 RPT#: [id number] DC DATE:11/19/18 STATUS: DIS IN [facility] [address] [place] [address] END OF REPORT
--- NOTE | 2018-11-22 10:06 | OP ---
PATIENT NAME: HUSEYIN DAVID MEDICAL RECORD: [id number] :[birth year] LOCATION:D.M2 D.2108 ADMISSION DATE:11/16/18 SURGEON: AMANDA ZAMARRIPA MD DATE OF OPERATION: 11/17/2018 PROCEDURE: Left heart catheterization, selective coronary angiography, right radial approach. CATHETERS: Radial sheath and Ben Wheeler catheter. The procedure was well tolerated. The patient was returned to the lynne. Sheath was removed. TR band was placed. FINDINGS: Left ventriculography in 30-degree YODER view; normal wall motion and normal systolic function. CORONARY ANATOMY: LEFT MAIN: Left main is free of disease. LAD: Free of disease in the diagonal system. CIRCUMFLEX: Free of disease in the marginal system. RIGHT CORONARY ARTERY: Dominant artery, gives rise to PDA, free of disease. IMPRESSION: Normal LV systolic function. Normal coronary anatomy. TRANSINT:[id number] Voice Confirmation ID: [id number] DOCUMENT ID: [id number] AMANDA ZAMARRIPA MD at 1006 CC: [id number] DICTATION DATE: 11/17/18 1321 INSURANCE ASSOCIATE: 11/17/18 1453 DIS IN 11/19/18 [facility] [address] [place] [address]
--- NOTE | 2018-11-22 10:06 | EC ---
PATIENT:HUSEYIN DAVID DATE OF SERVICE: 11/16/18 SEX: M MEDICAL RECORD: [id number] DATE OF : 69 LOCATION:D.M2 D.210 AGE OF PATIENT: 53 ADMISSION DATE: 11/16/18 REFERRING PHYSICIAN: INTERPRETING PHYSICIAN: AMANDA ZAMARRIPA MD ECHOCARDIOGRAM REPORT ECHO CHARGES 4 ECHO COMPLETE Date: 11/17/18 CLINICAL DIAGNOSIS: CHEST PAIN, UNCONTROLLED HTN ECHOCARDIOGRAPHIC MEASUREMENTS (adult normal given) AC root (d.<3.7cm) 3.9 cm LV Septum d (<1.2 cm> 1.8 cm Valve Excursion 2.2 cm LV Septum (systole) 2.0 cm Left Atria (s.<4.0cm> 5.4 cm LVPW d(<1.2cm) 2.0 cm RV (d.<2.3cm) 4.1 cm LVPW (sytole) 2.2 cm LV diastole(<5.6CM) 6.2 cm MV E-F(>70mm/sec) cm LV systole 4.6 cm LVOT Diameter 2.3 cm MV exc.(>10mm) 1.2 cm Est.ejection fraction (50-75%) % DOPPLER: LVIT cm/sec A 103 cm/sec E 74.0 cm/sec LA cm/sec RVSP 20 mmHg LVOT 141 cm/sec AOP1/2T m/s Asc. Ao cm/sec RVOT 89 cm/sec RA cm/sec PA 149 cm/sec AV Gradient Peak 3.50 mmHg AV Mean 1.7 mmHg AV Area 4.0 cm MV Gradient Peak 7.45 mmHg MV Mean 2.61 mmHg MV Area cm COMMENTS: Metabolic Specialist: 2 RADHA VAUGHN Dice Spotter: 3 Dr. Vanegas TAPE# PACS Pericardial Effusion N DATE OF SERVICE: Adequate 2D, color flow, spectral Doppler, and M-Mode. LVH is present. LV internal dimension is normal. Wall motion is normal. EF is greater than or equal to 55%. Aortic valve sclerosis without evidence of stenosis on Doppler interrogation. Left atrium is dilated at 5.4 cm. Mitral valve shows no prolapse. Trace MR. Right-sided chambers grossly normal. Trace TR. TRANSINT:[id number] Voice Confirmation ID: [id number] DOCUMENT ID: [id number] ECHOCARDIOGRAM REPORT [id number] HUSEYIN DAVID GREGORY A MD at 1006 CC: [id number] DICTATION DATE: 11/17/18 151 ARCHITECTURE ANALYST: 11/18/18 0141 DIS IN 11/19/[address] [facility] [address] [place] [address]
== END 2018-11-19 18:27 | disposition home or self-care (01) ==
LOC: D.ER 08:52 → D.M2 09:59 → D.EDHOLD 09:59 → D.M2 13:51 → OBSVTIME 11-19 17:50 → D.M2 11-19 18:27
PROVIDERS: Family Medicine; Internal Medicine Interventional Cardiology; ADMIT Family Medicine; ATTEND Family Medicine
DX: K82.8 Other specified diseases of gallbladder (principal); F17.213 Nicotine dependence, cigarettes, with withdrawal; I25.119 Atherosclerotic heart disease of native coronary artery with unspecified angina pectoris; E78.5 Hyperlipidemia, unspecified; I11.0 Hypertensive heart disease with heart failure; I50.9 Heart failure, unspecified; I16.0 Hypertensive urgency; I42.9 Cardiomyopathy, unspecified; E11.65 Type 2 diabetes mellitus with hyperglycemia; I87.2 Venous insufficiency (chronic) (peripheral); E11.40 Type 2 diabetes mellitus with diabetic neuropathy, unspecified; K21.9 Gastro-esophageal reflux disease without esophagitis

== ENCOUNTER → 2018-11-24 05:09 | Day surgery (SDC) | payer BC ==
[~2018-11-24] VITALS: Ht 170.2 cm; Wt 158.8 kg
[~2018-11-24 05:09] MED LIST changes: +BUMEX2 MG PO; +FUROSEMIDE40 MG PO
[2018-11-24 06:07] LABS: HEMOGLOBIN 15.2 g/dL (13.5-17.5); MCH 28.8 pg (26.0-34.0); MCHC 32.3 g/dL (31.0-37.0); MCV 89.2 fL (80.0-100.0); MEAN PLATELET VOLUME 10.9 fL (7.4-10.4); RBC 5.27 10x6/uL (4.20-6.10); RDW 13.7 % (11.5-14.5); WBC 8.5 10x3/uL (4.8-10.8)
[2018-11-24 06:29] LABS: ANION GAP 10.8 mmol/L (8-16); CALCIUM 9.4 mg/dL (8.5-10.1); CARBON DIOXIDE 33.5 mmol/L (21.0-32.0); CREATININE - SERUM 1.4 mg/dL (0.6-1.3); POTASSIUM - SERUM 4.3 mmol/L (3.5-5.1)
[2018-11-24 06:40] VITALS: BP 103/61; Ht 170.2 cm; Wt 158.8 kg
--- NOTE | 2018-11-24 11:35 | NUR ---
REC'D FROM RR. FAMILY AT BEDSIDE. DRESSINGS CDI TO ABDOMINAL SURGICAL SITES. ICE PACK TAKEN TO PT.
--- NOTE | 2018-11-24 11:45 | NUR ---
FL TRAY BROUGHT TO PT. WANTS TO SIT UP ON SIDE OF BED. RELATES HIS BOTTOM HURTS. AT BEDSIDE.
--- NOTE | 2018-11-24 11:51 | NUR ---
URINAL TAKEN TO PATIENT. AT BEDSIDE.
--- NOTE | 2018-11-24 12:05 | NUR ---
TOLERATED FL TRAY. VOIDED IN URINAL. RATES PAIN 4/10. PT WANTED PAIN MED.
--- NOTE | 2018-11-24 12:09 | NUR ---
NORCO 5/325MG PO 1 TAB ADMINISTERED PER ORDERS. AT BEDSIDE. ICE WATER TAKEN TO PT.
--- NOTE | 2018-11-24 13:33 | NUR ---
1306 DISCHARGED HOME. TAKEN OUT VIA W/C AND ASSISTED TO CAR WITH . ADVISED TO CALL OR COME BACK IF ANY PROBLEMS.
== END | disposition home or self-care (01) ==
LOC: D.OPS 05:09
PROVIDERS: Anesthesiology; ATTEND Surgery
DX: K82.4 Cholesterolosis of gallbladder (principal); K76.0 Fatty (change of) liver, not elsewhere classified; Z01.812 Encounter for preprocedural laboratory examination

== ENCOUNTER 2019-08-27 12:27 | Inpatient (IN) | payer MEDICAID ==
[2019-08-27] VITALS (10 sets, daily range): BP systolic 125–146; BP diastolic 74–92; BMI 58.1
[~2019-08-27] VITALS: Ht 170.2 cm; Wt 156.2 kg
--- NOTE | ~2019-08-27 | HEMODYNAMI ---
PATIENT:HUSEYIN DAVID JR MEDICAL RECORD: [id number] : 69 LOCATION:[facility] D.2306 [facility]# [id number] ADMISSION DATE: 08/27/19 Generatedon:08/30/20199:20 Patient name: HUSEYIN DAVID Patient #: [id number] : 1965 Date of study: 08/30/2019 Page: Of Hemodynamic Procedure Report Patient Data Patient Demographics Procedure consent was obtained First Name: HUSEYIN Gender: Male Last Name: FRANKIE Suffix: Jr Lund Initial: YISSEL : 1965 Patient #: [id number] Age: 53 year(s) Race: SSN: [id number] Additional ID: [id number] Contact details [address]: [address] [place] [address] State: [place] City: [place] Zip code: [address] Past Medical History Allergies: No known allergies Admission Admission Data Admission Date: 08/27/2019 Admission Time: 13:08 Arrival Date: 08/27/2019 Arrival Time: 13:08 Admit Source: Other Insurance Payor: Medicaid Room #: D.2306 [facility] #: [id number] Height (in.): 66.93 BSA: 2.59 (m2) Height (cm.): 170 BMI: 56.06 (kg/m2) Weight (lbs.): 357.15 Weight (kg.): 162 Lab Results Lab Result Date: 08/30/2019 Lab Result Time: 0:00 Biochemistry Name Units Result Min Max BUN mg/dl 34 --(----)-* 7 18 Creatinine mg/dl 1.4 --(----)*- 0.6 1.3 eGFR ml/min 57 *-(----)-- 90 120 NONAFRICAN CBC Name Units Result Min Max Hemoglobin g/dl 14.4 --(*---)-- 13.5 17.5 Procedure Procedure Types Cath Procedure Diagnostic Procedure [facility] w/Coronaries Sedation Charges Moderate Sedation up to 15 minutes Procedure Description Procedure Date Procedure Date: 08/30/2019 Procedure Start Time: 9:08 Procedure End Time: 9:16 Procedure Staff Name Function Emeterio Vallecillo MD Performing Physician Carole Gan RT Monitor Carolyn Sim RT Scrub Cuate Velarde RN Nurse Procedure Data Cath Procedure Fluoroscopy Diagnostic fluoroscopy Total fluoroscopy Time: 1.3 time: 1.3 min min Diagnostic fluoroscopy Total fluoroscopy dose: 370 dose: 370 mGy mGy Contrast Material Contrast Material Type Amount (ml) Isovue 300 50 Entry Location Entry Primary Successful Side Size Upsize Upsize Entry Closure Franklin ccessful Closure Location (Fr) 1 (Fr) 2 (Fr) Remarks Device Remarks Radial Right 6 Fr Mechanical artery Short Compression Estimated blood loss: 5 ml Diagnostic catheters Device Type Used For End Catheter Placement DIAGNOSTIC Enterprise 110cm 5 Multi-vessel Fr catheter ([id number]) Angiography Procedure Complications No complications Procedure Medications Medication Administration Route Dosage Oxygen NC 4 l/min Lidocaine 2% added to field 20 Heparin Flush Bag added to field 2 bags (1000units/500ml NS) 0.9% NaCl I.V. 100 ml/hr Versed I.V. 1 mg Fentanyl I.V. 50 mcg Benadryl I.V. 50 mg Radial Cocktail I.A. 1 syringe (Verapamil 2mg/Nitro 400mcg/Heparin 1500units) Hemodynamics Rest BSA: 2.59 (m2) HGB: 14.4 (g/dl) O2 Consumption: Estimated: 309.49 (ml/min) O2 Co nsumption indexed: Estimated:119.49 (ml/min/m) Heart Rate: 70 (bpm) Snapshots Pre Cath Intra NCS Post Cath Vital Signs Time Heart Resp SPO2 etCO2 NIBP (mmHg) Rhythm Pain Sedation Rate (ipm) (%) (mmHg) Status Level (bpm) 8:54:48 67 17 95 0 173/104(140) NSR (Missing) 10(A) 9:05:07 80 16 90 0 138/89(68) NSR (Missing) 10(A) 9:11:30 73 14 94 0 121/93(0) NSR (Missing) 9(A) 9:15:11 69 14 0 Time NSR (Missing) 10(A) Exceeded Medications Time Medication Route Dose Verified Delivered Reason Notes Effectiveness by by 8:54:29 Oxygen NC 4 l/min Emeteriosissy Carpioie used for Avel Velarde RN procedure 8:54:35 Lidocaine 2% added 20ml Emeterio Storm for local to vial Avel Vallecillo MD anesthetic field 8:54:41 Heparin Flush added 2 bags Emeterio Storm used for Bag to Avel Vallecillo MD procedure (1000units/500ml field NS) 8:54:50 0.9% NaCl I.V. 100 Emeteriosissy Cuello Per ml/hr Avel Velarde RN physician 8:56:17 Benadryl I.V. 50 mg Emeterio Cuello used for pt did Avel Velarde RN procedure not recieve preop meds in icu 9:05:08 Versed I.V. 1 mg Emeterio Cuello for sedation Avel Velarde RN 9:05:14 Fentanyl I.V. 50 mcg Emeterio Cuello for sedation Avel Velarde RN 9:08:45 Radial Cocktail I.A. 1 Emeterio Storm for (Verapamil syringe Avel Vallecillo MD vasodilation 2mg/Nitro 400mcg/Heparin 1500units) Procedure Log Time Note 8:31:38 Informed consent obtained and on chart 8:33:07 Arrival Date: 08/27/2019 1:08:00 PM 8:33:27 Insurance Payor : Medicaid 8:33:28 Admit Source: Other 8:33:37 Patient Height : 66.93 inches 8:33:41 Patient Weight : 357.15 lbs 8:34:34 Lab Result : eGFR NONAFRICAN 57 ml/min 8:34:34 Lab Result : Creatinine 1.4 mg/dl 8:34:34 Lab Result : BUN 34 mg/dl 8:34:34 Lab Result : Hemoglobin 14.4 g/dl 8:34:46 Diagnostic Cath Status : Urgent 8:35:04 Procedure Status Urgent Heart Cath (IP). 8:35:07 Cuate Velarde RN sent for patient. Start room use. 8:35:07 Time tracking: Regular hours (M-F 7:00 - 5:00) 8:35:12 Plan of Care:Hemodynamics will remain stable., Cardiac rhythm will remain stable., Comfort level will be maintained., Respiratory function will remain adequate., Patient/ family verbilizes understanding of procedure., Procedure tolerated without complication., Recovers from procedure without complications.. 8:48:24 Patient received from Med II to CCL 2 Alert and oriented. Tansferred to table in Supine position. 8:48:26 Warm blankets applied, and rodney hugger turned on for patient comfort. 8:48:26 Correct patient and procedure confirmed by team. 8:48:27 ECG and BP/O2 sat monitors applied to patient. 8:53:31 Vital chart was started 8:54:05 Baseline sample Acquired. 8:54:09 Rhythm: sinus rhythm 8:54:12 Full Disclosure recording started 8:54:16 H&P Date Dictated: 08/30/2019 Within 30 days and on chart., H&P Addendum completed by physician on day of procedure. (MUST COMPLETE FOR ALL OUTPATIENTS). 8:54:17 Pre-procedure instructions explained to patient. 8:54:18 Pre-op teaching completed and patient verbalized understanding. 8:54:20 Family in patients room. 8:54:21 Patient NPO since Midnight. 8:54:25 Is the patient allergic to Iodine/contrast media? No. 8:54:26 Was the patient premedicated? Yes 8:54:27 Is patient on blood thinner?Yes 8:54:27 Is patient on blood thinner?Yes 8:54:28 Patient diabetic? Yes. 8:54:29 Oxygen 4 l/min NC was administered by Cuate Velarde RN; used for procedure; Verbal order read back and verified. 8:54:29 If diabetic: On Metformin? No 8:54:32 Previous problem with sedation/anesthesia? No ? 8:54:35 Lidocaine 2% 20ml vial added to field was administered by Emeterio Vallecillo MD; for local anesthetic; Verbal order read back and verified. 8:54:35 Snore? Yes 8:54:35 Sleep apnea? Yes 8:54:37 Deviated septum? No 8:54:37 Opens mouth fully? Yes 8:54:38 Sticks out tongue? Yes 8:54:41 Heparin Flush Bag (1000units/500ml NS) 2 bags added to field was administered by Emeterio Vallecillo MD; used for procedure; Verbal order read back and verified. 8:54:41 Airway obstruction? Yes copd 8:54:44 Dentures? No ? 8:54:47 Pre procedure: right dorsailis pedis pulse 2+ Normal; easily identifiable; not easily obliterated 8:54:50 0.9% NaCl 100 ml/hr I.V. was administered by Cuate Velarde RN; Per physician; Verbal order read back and verified. 8:54:50 Pre procedure: left dorsailis pedis pulse 2+ Normal; easily identifiable; not easily obliterated 8:54:53 Patient pain scale 0/10 ?. 8:55:01 IV patent on arrival in left forearm with 0.9% NaCl at O. 8:55:04 Lab results completed and on chart. 8:56:17 Benadryl 50 mg I.V. was administered by Cuate Velarde RN; used for procedure; pt did not recieve preop meds in icu Verbal order read back and verified. 8:57:27 ACC The patient was administered the following blood thiners within the last 24 hours: ACCPlavix 8:59:06 Risk of Mortality: 0.3 8:59:10 Risk of blood transfusion: 0.2 8:59:14 Risk of MEAGHAN: 2.5 8:59:21 Right Radial & Right Groin area was prepped with chlora-prep and draped in sterile fashion 8:59:22 Alarms reviewed by R. N. 8:59:23 Sharps counted by scrub and verified by R.N. 8:59:24 Physician arrived 8:59:24 --------ALL STOP TIME OUT------ 8:59:25 Final Timeout: patient, procedure, and site verified with staff and physician. All members of the team are in agreement. 8:59:27 Right Radial & Right Groin site verified by team. 8:59:31 Fire Safety Assessment: A--An alcohol-based skin anteseptic being used preoperatively., C--Open oxygen or nitrous oxide is being used., D--An ESU, laser, or fiber-optic light is being used. 8:59:35 Physical assessment completed. ASA score P 2 - A patient with mild systemic disease as per Emeterio Vallecillo MD. 8:59:51 3a) 45-59 Moderately reduced kidney function. 9:04:58 Maximum allowable contrast dose (3.7 X eGFR X 0.75)158 ml. 9:05:01 Sedation plan: IV Moderate Sedation Medication:Versed, Fentanyl 9:05:05 Use device set Radial Dx or PCI 9:05:06 ACIST Syringe (70544) opened to sterile field. 9:05:06 Medline Cath Pack ([id number]) opened to sterile field. 9:05:07 Bag Decanter (2002S) opened to sterile field. 9:05:07 ACIST Hand Control (06970) opened to sterile field. 9:05:07 ACIST Manifold (11873) opened to sterile field. 9:05:08 Versed 1 mg I.V. was administered by Cuate Velarde RN; for sedation; Verbal order read back and verified. 9:05:08 Tegaderm 4 x 4 (1626W) opened to sterile field. 9:05:08 MBrace Wrist Support ([id number]) opened to sterile field. 9:05:11 SHEATH 6FR RAIN (9699151) opened to sterile field. 9:05:12 EMERALD Guide Wire (818-364) opened to sterile field. 9:05:14 Fentanyl 50 mcg I.V. was administered by Cuate Velarde RN; for sedation; Verbal order read back and verified. 9:07:32 Procedure started. 9:08:45 Radial Cocktail (Verapamil 2mg/Nitro 400mcg/Heparin 1500units) 1 syringe I.A. was administered by Emeterio Vallecillo MD; for vasodilation; Verbal order read back and verified. 9:08:56 Local anesthetic to right radial artery with Lidocaine 2% by Emeterio Vallecillo MD.INITIAL ACCESS ONLY 9:09:05 A 6 Fr Short sheath was inserted into the Right Radial artery 9:09:36 A DIAGNOSTIC Enterprise 110cm 5 Fr catheter (008428) was advanced over the wire and used for Multi-vessel Angiography. 9:10:40 IV Extension Set opened to sterile field. 9:11:18 LV hemodynamics recorded. 9:11:19 LV gram done using YODER 9:11:22 Injector settings: Ml/sec: 5, Volume: 15, 9:11:28 EF : 40 % 9:12:47 LCA angiography performed. 9:12:50 Injector settings: Ml/sec: 3, Volume: 6, 9:13:02 RCA angiography performed. 9:13:05 Injector settings: Ml/sec: 3, Volume: 6, 9:13:12 Catheter removed. 9:13:39 TR BAND Large ([id number]) opened to sterile field. 9:13:47 ACCDominant side:Right 9:14:25 Sheath removed intact; hemostasis achieved with Mechanical Compression to the Right Radial artery. 9:14:29 Procedure ended.(Physican Out) 9:14:59 Fluoroscopy time 01.30 minutes. 9:15:05 Fluoroscopy dose: 370 mGy 9:15:05 Flurop Dose total: 370 9:15:11 Dose Area Product 2775 mGy/cm. 9:15:15 Contrast amount:Isovue 300 50ml. 9:15:17 Maximum allowable dose exceeded? No. 9:15:18 Sharps counted by scrub and verified by R.N. 9:15:21 [place] band inflated with 10cc of air. 9:15:22 Insertion/operative site no bleeding no hematoma. 9:15:29 Post right radial artery:stable 9:15:31 Post Procedure Pulses reassessed and unchanged 9:15:34 Post procedure rhythm: unchanged. 9:15:37 Estimated blood loss: 5 ml 9:15:39 Post procedure instruction explained to patient.Patient verbalizes understanding. 9:15:39 Patient needs reinforcement of post procedure teaching. 9:16:03 Procedure type changed to Cath procedure, Diagnostic procedure, LHC, [facility] w/Coronaries, Sedation Charges, Moderate Sedation up to 15 minutes 9:16:04 Procedure and supply charges have been captured, reviewed, submitted and are correct. 9:16:09 Procedure Complication : No complications 9:16:11 Vital chart was stopped 9:16:13 [facility] Findings: MVD- PCI performed (see procedure note) 9:16:15 Operative report dictated upon procedure completion. 9:16:15 See physician's report for complete and final results. 9:16:19 Report given to [facility]. 9:16:22 Patient transfered to [facility] with Stretcher. 9:16:24 Procedure ended. 9:16:24 Full Disclosure recording stopped 9:16:28 End room use (Document Last) 9:19:09 End room use (Document Last) 9:19:37 End room use (Document Last) Device Usage Item Name Manufacture Quantity Catalog Hospital Part Current Minima l Lot# / Number Charge Number Stock Stock Serial# Code ACIST Acist 1 26531 [id number] 097392 310052 20 Syringe Medical (58993) Systems Inc Medline Medline 1 [id number] 567276 67891 739830 5 Cath Pack ([id number]) Bag Microtek 1 715019 49527 382324 5 Decanter Medical Inc. () ACIST Hand Acist 1 64035 179809 776520 807255 5 Control Medical (23554) Systems Inc ACIST Acist 1 91583 576126 637030 875035 5 Manifold Medical (11205) Systems Inc Tegaderm 4 3M 1 1626W 693578 523152 935558 5 x 4 (1626W) MBrace Advanced 1 140-0250-00 887972 95976 502049 5 Wrist Vascular Support Dynamics ([id number]) SHEATH 6FR Cardinal 1 3647950 964441 0646167 578373 5 [facility] (5844007) EMERALD Cardinal 1 757-930 967488 931131 384871 5 Guide Wire [facility] (630-956) DIAGNOSTIC Terumo 1 40-1279 294250 757367 502109 5 Enterprise 110cm 5 Fr catheter (896525) IV Hospira 1 78342-41 365515 07400 147796 5 Extension Set TR BAND Terumo 1 VIC15-WNH 940836 034503 223540 40 Large ([id number]) Signature Audit Mantee Stage Time Signature Unsigned Intra-Procedure 08/30/2019 Carole Gan 9:19:09 AM RT(R) Intra-Procedure 08/30/2019 Cuate Velarde RN 9:19:37 AM Intra-Procedure 08/30/2019 Emeterio Vallecillo 9:20:00 AM [facility] [address] [place] [address]
--- NOTE | 2019-08-27 13:46 | NUR ---
REC'D PT TO ICU VIA MED FLIGHT. DR SAMANTHA BARBER AND IS HERE AT BS. EKG DONE. ABG'S DRAWN. BIPAP PER RT. ALL MONITORING EQUIPMENT ATTACHED AND ALARMS SET. PT ANSWERS QUESTION BUT IS WEARING BIPAP AND IT IS LIMITING ANSWERING AT TIMES. DENIES CP. UNABLE TO TURN PT OVER AT THIS TIME DUE TO RESP DISTRESS. IS RESTING COMFORTABLE AT REST WITH BIPAP. WILL EVAL SKIN ASSESSMENT OF COCCYX WHEN MORE APPROPRIATE TO TURN OVER.
[2019-08-27 14:57] LABS: BASOPHILS 0.2 % (0-2); EOSINOPHILS 0 % (0-7); HEMATOCRIT 46.5 % (42.0-54.0); HEMOGLOBIN 15.2 g/dL (13.5-17.5); IMMATURE GRANULOCYTES 0.2 % (0-5); LYMPHOCYTES 3.3 % (15-50); MCH 30.1 pg (26.0-34.0); MCHC 32.7 g/dL (31.0-37.0); MCV 92.1 fL (80.0-100.0); MEAN PLATELET VOLUME 9.7 fL (7.4-10.4); MONOCYTES 2.6 % (2-11); NEUTROPHILS 93.7 % (40-80); RBC 5.05 10x6/uL (4.20-6.10); WBC 11.1 10x3/uL (4.8-10.8)
[2019-08-27 14:59] LABS: PLATELET COUNT 124 10x3/uL (130-400)
--- NOTE | 2019-08-27 15:00 | NUR ---
REASSESSMENT COMPLETED PER FLOWSHEET, SEE FLOWSHEET FOR INFORMATION. WILL CONT TO MONITOR. FAMILY AT BEDSIDE, UPDATE GIVEN. AND CHANO BETTENCOURT AT BEDSIDE. WILL CONT TO MONITOR.
[2019-08-27 15:31] LABS: APTT 32.4 SECONDS (22.8-39.4); INR 1.07 (0.85-1.17); PROTIME 13.8 SECONDS (11.6-15.0)
[2019-08-27 15:33] LABS: D-DIMER-QUANTITATIVE 0.76 ug/mLFEU (0.20-0.54)
[2019-08-27 15:47] LABS: ANION GAP 10.7 mmol/L (8-16); CALCIUM 8.4 mg/dL (8.5-10.1); CARBON DIOXIDE 32.1 mmol/L (21.0-32.0); CREATININE - SERUM 1.4 mg/dL (0.6-1.3); POTASSIUM - SERUM 3.8 mmol/L (3.5-5.1)
[2019-08-27 15:53] LABS: TROPONIN-I 0.205 ng/mL (0.000-0.060)
[2019-08-27 16:19] LABS: MAGNESIUM - SERUM 1.7 mg/dL (1.8-2.4)
--- NOTE | 2019-08-27 17:00 | NUR ---
SPOKE WITH , INFORMED HIM OF LABS, STATED "I DO NOT BELIEVE HE HAD A HEART ATTACK." FAMILY GIVEN UPDATE. WILL CONT TO MONITOR.
--- NOTE | 2019-08-27 19:00 | NUR ---
ASSESSMENT COMPLETED. MILDLY LETHARGIC BUT IS BECOMING MORE ALERT ASSESSMENT CONT. BIPAP AT 70%.
[2019-08-27 20:30] LABS: BILIRUBIN NEGATIVE (NEGATIVE); GLUCOSE NEGATIVE (NEGATIVE); KETONE NEGATIVE (NEGATIVE); NITRITE NEGATIVE (NEGATIVE); UROBILINOGEN NORMAL (NORMAL)
[2019-08-27 20:31] LABS: AMORPHOUS SEDIMENT <1+ /lpf (NONE SEEN); BACTERIA MODERATE /hpf (NEGATIVE); EPITHELIAL CELLS 0-5 /hpf (0-5); GRANULAR CAST OCC /lpf (NONE SEEN); WHITE CELLS - URINE 0-5 /hpf (NEGATIVE)
[2019-08-27 20:37] LABS: UDS - AMPHET NEGATIVE QUAL (NEGATIVE); UDS - BARB NEGATIVE QUAL (NEGATIVE); UDS - BENZO NEGATIVE QUAL (NEGATIVE); UDS - COCAINE NEGATIVE QUAL (NEGATIVE); UDS - OPIATE POSITIVE QUAL (NEGATIVE); UDS - PCP NEGATIVE QUAL (NEGATIVE); UDS - THC NEGATIVE QUAL (NEGATIVE)
--- NOTE | 2019-08-27 21:00 | NUR ---
FAMILY AT BEDSIDE. UPDATE GIVEN. PATIENT IS VERY ALERT NOW. DENIES ANY NEEDS. TOLERATED MEDS WITHOUT DIFFICULTY
--- NOTE | 2019-08-27 23:00 | NUR ---
RE-ASSESSMENT COMPLETED. NO CHANGES SINCE LAST ASSESSMENT
[2019-08-28] VITALS (24 sets, daily range): BP systolic 115–175; BP diastolic 71–98
--- NOTE | 2019-08-28 01:00 | NUR ---
DENIES ANY NEEDS. EASILY WAKES TO NAME. CALL LIGHT IN REACH
--- NOTE | 2019-08-28 03:00 | NUR ---
RE-ASSESSMENT COMPLETED. NO CHANGES SINCE LAST ASSESSMENT.
[2019-08-28 05:00] LABS: BASOPHILS 0.1 % (0-2); EOSINOPHILS 0 % (0-7); HEMATOCRIT 45.6 % (42.0-54.0); HEMOGLOBIN 14.7 g/dL (13.5-17.5); IMMATURE GRANULOCYTES 0.2 % (0-5); LYMPHOCYTES 8.2 % (15-50); MCH 29.9 pg (26.0-34.0); MCHC 32.2 g/dL (31.0-37.0); MCV 92.9 fL (80.0-100.0); MEAN PLATELET VOLUME 10.3 fL (7.4-10.4); MONOCYTES 4.8 % (2-11); NEUTROPHILS 86.7 % (40-80); PLATELET COUNT 137 10x3/uL (130-400); RBC 4.91 10x6/uL (4.20-6.10); RDW 14.3 % (11.5-14.5); WBC 12.8 10x3/uL (4.8-10.8)
--- NOTE | 2019-08-28 05:00 | NUR ---
DENIES ANY NEEDS. REPOSITIONED. FAMILY AT BEDSIDE. TOOK OFF BIPAP TO PROVIDE ORAL CARE AND AFTER APPROX 1-2 MINS PT STARTED DESAT. PUT BIPAP BACK ON
[2019-08-28 05:29] LABS: ALBUMIN 3.3 g/dL (3.4-5.0); ANION GAP 7.6 mmol/L (8-16); BILIRUBIN - TOTAL 0.55 mg/dL (0.2-1.3); CALCIUM 8.2 mg/dL (8.5-10.1); CARBON DIOXIDE 34.2 mmol/L (21.0-32.0); CREATININE - SERUM 1.5 mg/dL (0.6-1.3); PHOSPHOROUS 4.9 mg/dL (2.5-4.9); POTASSIUM - SERUM 3.8 mmol/L (3.5-5.1); PROTEIN - SERUM 7.4 g/dL (6.4-8.2)
[2019-08-28 05:32] LABS: MAGNESIUM - SERUM 2.3 mg/dL (1.8-2.4)
--- NOTE | 2019-08-28 07:00 | NUR ---
BEDSIDE REPORT RECEIVED. SHIFT ASSESSMENT COMPLETED PER FLOWSHEET, SEE FLOWSHEET FOR INFORMATION. PT RESTING IN BED WITH EYES CLOSED, ON BIPAP. NO ACUTE NEEDS OR DISTRESS NOTED AT THIS TIME. WILL CONT TO MONITOR.
--- NOTE | 2019-08-28 09:00 | NUR ---
0900 MEDICATIONS GIVEN. TOLERATED PO MEDICATIONS WELL. PUT BIPAP BACK ON, O2 TURNED DOWN FROM 75 TO 65. [facility]
--- NOTE | 2019-08-28 11:00 | NUR ---
AT BEDSIDE. REASSESSMENT COMPLETED PER FLOWSHEET, SEE FLOWSHEET FOR INFOMATION. PT IN BED RESTING WITH EYES CLOSED. NO ACUTE NEEDS OR DISTRESS NOTED AT THIS TIME. VSS. WILL CONT TO MONITOR.
--- NOTE | 2019-08-28 12:30 | NUR ---
PLACED PT ON HFNC @ 12 LPM SPO2 93% PER VERBAL ORDER DR LI
--- NOTE | 2019-08-28 13:00 | NUR ---
ASSISTED PT TO SIT UP IN BED, PT ABLE TO DO MOST OF IT. WILL CONT TO MONITOR, OXYGEN AT 14L HFNC O2SAT 93%. WILL CONT TO MONITOR.
--- NOTE | 2019-08-28 13:35 | NUR ---
O2 SAT WAS 90%, HAD PT COUGH AND DEEP BREATH AND O2 SAT DID NOT INCREASE. INCREASED OXYGEN TO 13L HFNC. WILL CONT TO MONITOR.
--- NOTE | 2019-08-28 15:00 | NUR ---
REASSESSMENT COMPLETED PER FLOWSHEET, SEE FLOWSHEET FOR INFORMATION. CHG BEDBATH GIVEN, PT REQUESTED HIS HAIR BE WASHED AND HIS TEETH BE BRUSHED. COMPLETD REQUEST. PT STATES "I FEEL MUCH BETTER NOW". SPEECH PATHOLOGIST AT BEDSIDE, NEW ORDERS RECEIVED. VSS, NO ACUTE NEEDS OR DISTRESS NOTED AT THIS TIME. WILL CONT TO MONITOR.
--- NOTE | 2019-08-28 17:00 | NUR ---
JUAN CALLED FOR A DINNER TRAY, NO ACUTE NEEDS OR DISTRESS NOTED AT THIS TIME. VSS. WILL CONT TO MONITOR.
--- NOTE | 2019-08-28 19:30 | NUR ---
REPORT RECIEVED, SHIFT ASSESSMENT COMPLETE, PT IS ALERT AND ORIENTED, ON 60% BIPAP WITH 97% O2 SAT. ALL PPP, VSS, CALL LIGHT IN REACH
--- NOTE | 2019-08-28 21:00 | NUR ---
FAMILY AT BEDSIDE, UPDATE GIVEN
--- NOTE | 2019-08-28 23:00 | NUR ---
REASSESSMENT COMPLETE, NO CHANGES NOTED, WILL CON'T TO MONITOR
[2019-08-29] VITALS (24 sets, daily range): BP systolic 100–1115; BP diastolic 38–96; Ht 170.2 cm; Wt 156.2 kg
--- NOTE | 2019-08-29 01:20 | NUR ---
PT RESTING AT THIS TIME, NO NEEDS NOTED, WILL CON'T TO MONITOR
--- NOTE | 2019-08-29 03:06 | NUR ---
REASSESSMENT COMPLETE, NO CHANGES NOTED, PT RESTITNG AT THIS TIME, VSS, CALL LIGHT IN REACH
[2019-08-29 04:29] LABS: BASOPHILS 0.1 % (0-2); EOSINOPHILS 0 % (0-7); HEMOGLOBIN 14.4 g/dL (13.5-17.5); IMMATURE GRANULOCYTES 0.2 % (0-5); MCH 30.2 pg (26.0-34.0); MCV 94.3 fL (80.0-100.0); MEAN PLATELET VOLUME 10.4 fL (7.4-10.4); MONOCYTES 9.7 % (2-11); PLATELET COUNT 145 10x3/uL (130-400); RBC 4.77 10x6/uL (4.20-6.10); RDW 14.1 % (11.5-14.5); WBC 15.6 10x3/uL (4.8-10.8)
[2019-08-29 04:59] LABS: ANION GAP 5.7 mmol/L (8-16); BILIRUBIN - TOTAL 0.54 mg/dL (0.2-1.3); CALCIUM 8.3 mg/dL (8.5-10.1); CARBON DIOXIDE 37.9 mmol/L (21.0-32.0); CREATININE - SERUM 1.4 mg/dL (0.6-1.3); MAGNESIUM - SERUM 2.2 mg/dL (1.8-2.4); POTASSIUM - SERUM 3.6 mmol/L (3.5-5.1)
--- NOTE | 2019-08-29 05:15 | NUR ---
PT AWAKE AT THIS TIME, DENIES ANY WANTS OR NEEDS,
--- NOTE | 2019-08-29 07:00 | NUR ---
REPORT RECEIVED FROM THE OFF GOING RN. SEE ASSESSMENT IN THE PTS FLOW SHEET. PT A&O X4. VSS. PT O2 DECREASED TO 4L VIA NC. PT GIVEN AN IS AND INSTRUCTED HOW TO USE IT. PT PULLED ABOUT 1000 AND INSTRUCTED TO USE 10X'S/H. FC NOTED WITH CLEAR, YELLOW URINE. C/O MILD BACK PAIN. CALL LIGHT IN REACH. WILL CONT POC.
--- NOTE | 2019-08-29 09:00 | NUR ---
NO INSULIN IN THE UNIT FOR THE PT. PHARMACY NOTIFIED. THEY ARE SENDING UP INSULIN VIAL.
--- NOTE | 2019-08-29 09:57 | NUR ---
PT VSS. PT HAS NO COMPLAINTS AT THIS TIME. CALL LIGHT IN REACH. WILL CONT POC.
--- NOTE | 2019-08-29 11:00 | NUR ---
REASSESSMENT COMPLETED. SEE FLOW SHEET. CALL LIGHT IN REACH. WILL CONT POC
--- NOTE | 2019-08-29 11:21 | NUR ---
PT ASSISTED OOB AND INTO HIS BEDSIDE CHAIR. PT TOLERATED WELL. CALL LIGHT IN REACH. WILL ONT POC.
--- NOTE | 2019-08-29 11:54 | CN ---
PATIENT NAME:HUSEYIN DAVID JR MEDICAL RECORD: [id number] : 69 LOCATION:[facility]2306 ADMIT DATE: 08/27/19 ACCOUNT: [id number] CONSULTING PHYSICIAN: LOI SINGH MD REFERRING PHYSICIAN: ELVIS RAE DO DATE OF CONSULTATION: 08/27/2019 CARDIOLOGY CONSULTATION DIAGNOSES: 1. Respiratory failure. 2. Shortness of breath, dyspnea on exertion. 3. Hypertension. 4. Hyperlipidemia. 5. Diabetes. 6. Obesity. HISTORY OF PRESENT ILLNESS: Mr. David presents to [facility] with shortness of breath, impending respiratory failure, found to be in pulmonary edema, placed on BiPAP and transferred here. He remains on BiPAP. He is still quite tachypneic. He denies any chest pain. He had a cardiac catheterization in November of last year with no significant coronary artery disease; however, his troponin is approximately 120 at the outlying institution. His chest x-ray is definitely compatible with pulmonary edema. PHYSICAL EXAMINATION: CONSTITUTIONAL/GENERAL APPEARANCE: Well nourished, well developed, appears stated age. EYES: Lids and conjunctivae noninjected. No discharge. No pallor. ENT: Lips within normal limit. No cyanosis. No pallor. NECK: Carotid arteries, bilateral normal upstroke. No bruits. No thrills. No jugular venous pressure or distention. CERVICAL LYMPH NODES: Nontender. Nonenlarged. THYROID: Not enlarged. No nodules. CARDIOVASCULAR: Precordial exam, nondisplaced. No heaves or pericardial thrills. Rate and rhythm, regular. Heart sounds, normal S1, normal S2. No S3, no gallop, no rub. Systolic murmur, not heard. Diastolic murmur, not heard. RESPIRATORY: Respiratory effort, unlabored. Normal curvature. No thoracic deformity. No chest wall tenderness. Percussion, resonant. Auscultation, clear. No wheezes, no rales, no rhonchi. ABDOMEN: Soft, nondistended, nontender. No abdominal pain, no vomiting and normal appetite. MUSCULOSKELETAL: No joint tenderness, normal gait, normal tone. SKIN: Warm and dry. OVERALL IMPRESSION: Pulmonary edema, large myocardial infarction. We will get an echocardiogram to evaluate left ventricular function. At this time, we will continue his carvedilol, load him with aspirin and Plavix, use Lovenox. Plan for cardiac catheterization when respiratory status improves. We will give IV Lasix. If the ejection fraction shows a markedly depressed ejection fraction, we can consider inotropic therapy as well. TRANSINT:[id number] Voice Confirmation ID: [id number] DOCUMENT ID: [id number] CONSULT REPORT [id number] HUSEYIN DAVID JR, JEFFREY MD at 1154 CC: [id number] DICTATION DATE: 08/27/19 1325 WARNING COORDINATION METEOROLOGIST: 08/27/19 1435 ADM IN [facility] [address] [place] [id number]
--- NOTE | 2019-08-29 11:54 | EC ---
PATIENT:HUSEYIN DAVID JR DATE OF SERVICE: 08/27/19 SEX: M MEDICAL RECORD: [id number] DATE OF : [birth year] [facility] AGE OF PATIENT: 53 ADMISSION DATE: 08/27/19 REFERRING PHYSICIAN: INTERPRETING PHYSICIAN: LOI VALLECILLO MD ECHOCARDIOGRAM REPORT ECHO CHARGES 4 ECHO COMPLETE Date: 08/27/19 CLINICAL DIAGNOSIS: CP/HTN/CHF ECHOCARDIOGRAPHIC MEASUREMENTS (adult normal given) AC root (d.<3.7cm) 3.8 cm LV Septum d (<1.2 cm> 2.4 cm Valve Excursion 2.3 cm LV Septum (systole) 3.1 cm Left Atria (s.<4.0cm> 3.4 cm LVPW d(<1.2cm) 2.1 cm RV (d.<2.3cm) 3.1 cm LVPW (sytole) 2.5 cm LV diastole(<5.6CM) 5.0 cm MV E-F(>70mm/sec) cm LV systole 3.3 cm LVOT Diameter 2.1 cm MV exc.(>10mm) cm Est.ejection fraction (50-75%) % DOPPLER: LVIT cm/sec A 111 cm/sec E 72.0 cm/sec LA cm/sec RVSP mmHg LVOT 91.0 cm/sec AOP1/2T m/s Asc. Ao 178 cm/sec RVOT 81.0 cm/sec RA cm/sec PA 47.0 cm/sec AV Gradient Peak 13.0 mmHg AV Mean 6.7 mmHg AV Area 2.3 cm MV Gradient Peak 7.5 mmHg MV Mean 3.1 mmHg MV Area cm COMMENTS: Electronic Data Processing Auditor: 1 ANNA MOOREOE [employer] District Sales Manager: 1 Dr. Vallecillo TAPE# PACS Pericardial Effusion N DATE OF SERVICE: ECHOCARDIOGRAM FINDINGS: 1. Left ventricular chamber size is mildly dilated. Left ventricular systolic function is mildly reduced at 40%. 2. Left atrium, right atrium, and right ventricle chamber sizes are within normal limits. 3. Valvular structures have normal structure and motion. ECHOCARDIOGRAM REPORT [id number] HUSEYIN DAVID JR 4. Doppler interrogation reveals no significant valvular insufficiency or stenosis. 5. No evidence of pericardial effusion or left ventricular thrombus. TRANSINT:[id number] Voice Confirmation ID: [id number] DOCUMENT ID: [id number] LOI VALLECILLO MD at 1154 CC: [id number] DICTATION DATE: 08/27/191734 DULSER: 08/27/19 213 ADM IN [place] [id number] [place] [id number]
--- NOTE | 2019-08-29 15:00 | NUR ---
REASSESSMENT COMPLETED. SEE FLOW SHEET. VSS WILL CONT POC.
--- NOTE | 2019-08-29 19:10 | NUR ---
REPORT RECIEVED, SHIFT ASSESSMENT COMPLETE, PT IS ALERT AND ORIENTED, SITTING UP IN CHAIR, ON 4L HF WITH 97% O2 SAT. VSS, CALL LIGHT IN REACH
--- NOTE | 2019-08-29 21:00 | NUR ---
CHG BATH AND COMPLETE BATH AND LINEN CHANGE
--- NOTE | 2019-08-29 23:25 | NUR ---
REASSESSMENT COMPLETE, NO CHANGES NOTED, PT RESTING COMFORTABLY, WILL CON'T TO MONITOR
[2019-08-30] VITALS (21 sets, daily range): BP systolic 113–171; BP diastolic 59–121
--- NOTE | 2019-08-30 01:10 | NUR ---
PT RESTING AT THIS TIME, WILL CON'T TO MONITOR
--- NOTE | 2019-08-30 03:00 | NUR ---
REASSESSMENT COMPLETE, NO CHANGES NOTED, PT RESTING COMFORTABLY ON BIPAP, NO NEEDS NOTED,
[2019-08-30 04:29] LABS: BASOPHILS 0.1 % (0-2); EOSINOPHILS 0 % (0-7); HEMATOCRIT 45.5 % (42.0-54.0); HEMOGLOBIN 14.6 g/dL (13.5-17.5); IMMATURE GRANULOCYTES 0.2 % (0-5); LYMPHOCYTES 13.9 % (15-50); MCH 30.1 pg (26.0-34.0); MCHC 32.1 g/dL (31.0-37.0); MCV 93.8 fL (80.0-100.0); MEAN PLATELET VOLUME 10.4 fL (7.4-10.4); MONOCYTES 9.9 % (2-11); NEUTROPHILS 75.9 % (40-80); PLATELET COUNT 137 10x3/uL (130-400); RBC 4.85 10x6/uL (4.20-6.10); WBC 12.4 10x3/uL (4.8-10.8)
[2019-08-30 04:42] LABS: ANION GAP 4.2 mmol/L (8-16); BILIRUBIN - TOTAL 0.73 mg/dL (0.2-1.3); CALCIUM 8.2 mg/dL (8.5-10.1); CREATININE - SERUM 1.2 mg/dL (0.6-1.3); MAGNESIUM - SERUM 2.1 mg/dL (1.8-2.4); POTASSIUM - SERUM 3.3 mmol/L (3.5-5.1); PROTEIN - SERUM 7.3 g/dL (6.4-8.2)
[2019-08-30 05:00] LABS: CARBON DIOXIDE 41.1 mmol/L (21.0-32.0)
--- NOTE | 2019-08-30 05:30 | NUR ---
NO NEEDS NOTED AT THIS TIME, WILL CON'T TO MONITOR
--- NOTE | 2019-08-30 07:00 | NUR ---
REPORT RECEVIED FROM THE OFF GOING RN. SEE ASSESSMENT IN THE PTS FLOW SHEET. PT TAKEN OFF BIPAP AND PLACE ON 4L VIA NC. PT INSTRUCTED TO BE NPO FOR HEART CATH TODAY. VSS AT THIS TIME. DENIES PAIN. CALL LIGHT IN REACH. WILL CONT POC.
--- NOTE | 2019-08-30 08:38 | NUR ---
C APPLICATION DEVELOPER TEAM AT THE PTS BEDSIDE TAKING THE PT TO THE C APPLICATION DEVELOPER.
--- NOTE | 2019-08-30 09:59 | NUR ---
PT ARRIVED IN THE UNIT. REPORT RECEIVED FROM HEMA ARDON. CLEAN HEART CATH. PT HAS A RIGHT RADIAL TR BAND ON IN PLACE. PT ALERT BUT DROSWEY. VSS. WILL CONT POC.
--- NOTE | 2019-08-30 12:00 | NUR ---
VSS. PT DENIES PAIN AT THIS TIME. CALL LIGHT IN REACH. WILL CONT POC.
--- NOTE | 2019-08-30 16:51 | NUR ---
PT ASSISTED OOB AND INTO HIS BEDSIDE CHAIR. PT DID WELL. VSS. WILL COTN POC.
--- NOTE | 2019-08-30 19:00 | NUR ---
REPORT RECIEVED, SHIFT ASSESSMENT COMPLETE, PT IS ALERT AND ORIENTED, ON 6L HFNC WITH 97% O2 SAT. ALL PPP, VSS, CALL LIGHT IN REACH
--- NOTE | 2019-08-30 21:15 | NUR ---
LG BM AT THIS TIME, BATH AND LINEN CHANGE
--- NOTE | 2019-08-30 22:38 | NUR ---
APPLIED BIPAP PT VOLODYMYR APLLICATION WELL
--- NOTE | 2019-08-30 23:15 | NUR ---
PT RESTING COMFORTABLY AT THIS TIME, VSS, CALL LIGHT IN REACH
--- NOTE | 2019-08-30 23:15 | NUR ---
PT PLACED ON BIPAP AT THIS TIME, RESTING COMFORTABLY
--- NOTE | 2019-08-31 01:27 | NUR ---
NO NEEDS NOTED AT THIS TIME, WILL CON'T TO MONITOR
[2019-08-31 03:00] VITALS: BP 141/86
--- NOTE | 2019-08-31 03:10 | NUR ---
PT RESTING COMFORTABLY AT THIS TIME, VSS, CALL LIGHT IN REACH
[2019-08-31 04:40] LABS: BASOPHILS 0.1 % (0-2); EOSINOPHILS 0 % (0-7); HEMATOCRIT 46.9 % (42.0-54.0); HEMOGLOBIN 14.8 g/dL (13.5-17.5); IMMATURE GRANULOCYTES 0.2 % (0-5); LYMPHOCYTES 17.2 % (15-50); MCH 29.8 pg (26.0-34.0); MCHC 31.6 g/dL (31.0-37.0); MCV 94.6 fL (80.0-100.0); MEAN PLATELET VOLUME 10.5 fL (7.4-10.4); MONOCYTES 8.8 % (2-11); NEUTROPHILS 73.7 % (40-80); PLATELET COUNT 150 10x3/uL (130-400); RBC 4.96 10x6/uL (4.20-6.10); RDW 13.8 % (11.5-14.5)
[2019-08-31 04:54] LABS: WBC 9.2 10x3/uL (4.8-10.8)
[2019-08-31 04:56] LABS: ALKALINE PHOSPHATASE 37 U/L (30-120); ALT (SGPT) 147 U/L (10-68); BILIRUBIN - TOTAL 0.83 mg/dL (0.2-1.3); CALC OSMOLALITY 289 mosm/kg (275-300); CALCIUM 8.4 mg/dL (8.5-10.1); CARBON DIOXIDE 39.7 mmol/L (21.0-32.0); CHLORIDE - SERUM 100 mmol/L (98-107); GLUCOSE 147 mg/dL (74-106); MAGNESIUM - SERUM 1.9 mg/dL (1.8-2.4); PROTEIN - SERUM 7.4 g/dL (6.4-8.2); SODIUM 141 mmol/L (136-145); UREA NITROGEN 30 mg/dL (7-18); eGFR NON AFRICAN AMERICAN 84 mL/min (90-120)
[2019-08-31 04:58] LABS: POTASSIUM - SERUM 3.8 mmol/L (3.5-5.1)
--- NOTE | 2019-08-31 05:09 | NUR ---
PT DENIES ANY NEEDS OR WANTS, WILL CON'T TO MONITOR
[2019-08-31 07:00] VITALS: BP 143/88
--- NOTE | 2019-08-31 07:00 | NUR ---
REPORT RECEVIED FROM THE OFF GOING RN. SEE ASSESSMENT IN THE PTS FLOW SHEET. VSS. PT ASSISTED OOB AND INTO HIS BEDSIDE CHAIR. CALL LIGHT IN REACH. WILL CONT POC.
--- NOTE | 2019-08-31 09:00 | NUR ---
PT DENIES PAIN. VSS. WILLC ONT POC.
[2019-08-31 11:00] VITALS: BP 166/92
--- NOTE | 2019-08-31 11:00 | NUR ---
VSS. PT HAS NO COMPLAINTS. NO S/SX OF DISTRESS/DISCOMFORT NOTED. WILL CONT PO.
--- NOTE | 2019-08-31 12:30 | MORECARE ---
CASE MANAGEMENT DISCHARGE SUMMARY PATIENT: HUSEYIN DAVID JR UNIT: [id number] ADM DATE: 08/27/19 AGE: 53 : 69 SEX: M ROOM/BED: D.2306 AUTHOR: REYNA FREED PHYSICIAN: REFERRING PHYSICIAN: ELVIS RAE DO DATE OF SERVICE: 08/31/19 Discharge Plan Patient Name: HUSEYIN DAVID [facility] [facility] 1965 Planned Disposition: Home Anticipated Discharge Date: Discharge Date: Expected LOS: Initial Reviewer: [email or web address] Initial Review Date: 08/29/2019 Generated: 08/31/19 1:30 pm DCPIA - Discharge Planning Initial Assessment Updated by [email or web address]: Deborah Antoine on 08/31/19 12:30 pm * Is the patient Alert and Oriented? Yes * How many steps to enter\exit or inside your home? RAMP * P[facility] * [facility] * Preadmission Environment Home with Family * ADLs Independent * Equipment None * List name and contact numbers for known caregivers / representatives who currently or will assist patient after discharge: KATINA DAVID - MOTHER- [phone] * Verbal permission to speak to the caregivers and representatives has been obtained from the patient. Yes * Community resources currently utilized None * Additional services required to return to the preadmission environment? No * Can the patient safely return to the preadmission environment? Yes * Has this patient been hospitalized within the prior 30 days at any hospital? No Patient Name: HUSEYIN DAVID Page [phone] at 1230 All edits/amendments must be made on the electronic document DICTATION DATE: 08/31/19 1230 PLASTIC FINISHER: KRISTINE 08/31/19 1230 RPT#: [id number] DC DATE: STATUS: ADM IN [facility] [address] [place] [address] END OF REPORT
--- NOTE | 2019-08-31 12:40 | MORECARE ---
CASE MANAGEMENT DISCHARGE SUMMARY PATIENT: HUSEYIN DAVID JR UNIT: [id number] ADM DATE: 08/27/19 AGE: 53 : 69 SEX: M ROOM/BED: D.2306 AUTHOR: ABDIAZIZ,DOC PHYSICIAN: REFERRING PHYSICIAN: ELVIS RAE DO DATE OF SERVICE: 08/31/19 Discharge Plan Patient Name: HUSEYIN DAVID Facility: [facility]:[place] : 1965 Planned Disposition: Home Anticipated Discharge Date: Discharge Date: Expected LOS: Initial Reviewer: [email or web address] Initial Review Date: 08/29/2019 Generated: 08/31/19 1:39 pm Comments DCP- Discharge Planning Updated by [email or web address]: Deborah Antoine on 08/31/19 11:[address] LATE ENTRY 08/30/19 Patient Name: HUSEYIN DAVID Admission Status: Elective Accout number: [id number] Admission Date: 08-27-2019 : 1965 Admission Diagnosis: Attending: ELVIS RAE Current LOS: 3 Anticipated DC Date: Planned Disposition: Home Primary Insurance: MEDICAID [place] Discharge Planning Comments: CM met with patient at bedside after explaining CM role and obtaining verbal consent. Patient lives at home with his mother or girlfriend where he is independent with his care and plans to return there upon discharge. Patient feels this would be a safe discharge. CM discussed availability / needs of home health and medical equipment. Patient states he is scheduled for a sleep study 09/30/19 to see if he can get CPAP. Patient may need walk test if he still requires 02 @ discharge. Patient denies any discharge needs at this time. Patient states he will have his family drive him home upon discharge. CM will continue to follow and assist as needed with discharge planning / needs. Guest Request Runner: Deborah Antoine DCPIA - Discharge Planning Initial Assessment Updated by [email or web address]: Deborah Antoine on 08/31/19 12:30 pm * Is the patient Alert and Oriented? Yes * How many steps to enter\exit or inside your home? RAMP * P[facility] * [facility] * Preadmission Environment Home with Family * ADLs Independent * Equipment None * List name and contact numbers for known caregivers / representatives who currently or will assist patient after discharge: KATINA DAVID - MOTHER- [phone] * Verbal permission to speak to the caregivers and representatives has been obtained from the patient. Yes * Community resources currently utilized None * Additional services required to return to the preadmission environment? No * Can the patient safely return to the preadmission environment? Yes * Has this patient been hospitalized within the prior 30 days at any hospital? No Last DP export: 08/31/19 11:30 a Patient Name: HUSEYIN DAVID Page [phone] at 1240 All edits/amendments must be made on the electronic document DICTATION DATE: 08/31/19 1239 DICTATING TRANSCRIBING MACHINE SERVICER: KRISTINE 08/31/19 1239 RPT#: [id number] DC DATE: STATUS: ADM IN [facility] [address] [place] [address] END OF REPORT
--- NOTE | 2019-08-31 13:39 | NUR ---
Nutrition follow-up: Diet: ADA consistent CHO PO intake 100% of most meals Labs reviewed Wt: 344# +BM RND following.
[2019-08-31 15:00] VITALS: BP 160/98
--- NOTE | 2019-08-31 15:43 | NUR ---
PT RESTING ON RA SP02 85% PT RESTING ON 2L/NC NOW WITH SP02 95%
[2019-08-31 19:00] VITALS: BP 155/112
--- NOTE | 2019-08-31 19:53 | NUR ---
PT SITTING UP IN CHAIR WITH LEGS ELEVATED. AWAKE ALERT AND ORIENTED X4. NO SIGNS OR SYMPTOMS OF DISTRESS NOTED. RESPIRATIONS EVEN AND UNLABORED. NO COMPLAINTS AT THIS TIME. CALL LIGHT WITH IN REACH AND BED ISIN LOWEST POSITION. PT ENCOURAGED TO CALL FOR HELP WHEN NEEDED. CALL LIGHT WITHI N REACH AND BED IS IN LOWEST POSITION. CHAIR IS LOCKED. WILL CONTINUE TO MONITOR.
--- NOTE | 2019-08-31 22:15 | NUR ---
PT REQUEST TO GO BACK TO BED. ASSIST PT WITH BED BATH AND PATINO CARE. NO SIGNS OR SYMPTOMS OF DISTRESS NOTED. CALL LIGHT WITH IN REACH AND BED IS IN LOWEST POSITION. SIDE RAILS UP x2. WILL CONTINUE TO MONITOR
[2019-08-31 23:40] VITALS: BP 162/105
[2019-09-01] VITALS (7 sets, daily range): BP systolic 142–162; BP diastolic 64–109
--- NOTE | 2019-09-01 00:18 | NUR ---
PT LYING IN BED RESTING WITH BI-PAP ON. EASILY AWAKEN WITH VOICE STIMULATION NO SIGNS OR SYMPTOMS OF DISTRESS NOTED. CALL LIGHT WITH IN REACH. WILL CONTINUE TO MONITOR
--- NOTE | 2019-09-01 02:06 | NUR ---
LYING IN BED RESTING WITH EYES CLOSED. EASILY AWAKEN WITH VOICE STIMULATION. RESPIRATIONS EVEN AND UNLABORED. CALL LIGHT WITH IN REACH. WILL CONTINUE TO MONITOR
--- NOTE | 2019-09-01 04:21 | NUR ---
RESTING WITH EYES CLOSED. EASILY AWAKEN WITH VOICE STIMULATION. NO COMPLAINTS AT THIS TIME. CALL LIGHT WITH IN REACH. WILL CONTINUE TO MONITOR
[2019-09-01 04:55] LABS: BASOPHILS 0.1 % (0-2); EOSINOPHILS 0.3 % (0-7); HEMATOCRIT 45.9 % (42.0-54.0); HEMOGLOBIN 14.5 g/dL (13.5-17.5); IMMATURE GRANULOCYTES 0.2 % (0-5); LYMPHOCYTES 29.2 % (15-50); MCH 29.7 pg (26.0-34.0); MCHC 31.6 g/dL (31.0-37.0); MCV 94.1 fL (80.0-100.0); MEAN PLATELET VOLUME 10.9 fL (7.4-10.4); MONOCYTES 9.1 % (2-11); NEUTROPHILS 61.1 % (40-80); PLATELET COUNT 161 10x3/uL (130-400); RBC 4.88 10x6/uL (4.20-6.10); RDW 13.4 % (11.5-14.5)
[2019-09-01 05:06] LABS: WBC 12.7 10x3/uL (4.8-10.8)
[2019-09-01 05:07] LABS: BILIRUBIN - TOTAL 0.93 mg/dL (0.2-1.3); CALCIUM 8.7 mg/dL (8.5-10.1); MAGNESIUM - SERUM 1.7 mg/dL (1.8-2.4); PROTEIN - SERUM 7.3 g/dL (6.4-8.2)
[2019-09-01 05:34] LABS: CREATININE - SERUM 1.3 mg/dL (0.6-1.3); POTASSIUM - SERUM 2.9 mmol/L (3.5-5.1)
[2019-09-01 05:35] LABS: CARBON DIOXIDE 41.9 mmol/L (21.0-32.0)
--- NOTE | 2019-09-01 06:12 | NUR ---
I have reviewed this patient and I concur with the Shift Assessment completed by the Licensed Practical Nurse today this shift.
--- NOTE | 2019-09-01 06:26 | NUR ---
N COMPLAINTS AT THIS TIME. CALL LIGHT WITH IN REACH. WILL CONTINUE TO MONITOR
--- NOTE | 2019-09-01 08:10 | NUR ---
PATIENT SITTING UP IN RECLINER EATING BREAKFAST INDEPENDENTLY. PERSONAL ITEMS AND CALL LIGHT WITHIN REACH.
--- NOTE | 2019-09-01 11:40 | NUR ---
PATIENT SITTING IN RECLINER EATING LUNCH INDEPENDENTLY. AT BEDSIDE. DENIES OTHER NEEDS AT THIS TIME.
[2019-09-01] MEDS ORDERED: Nicoderm [PBKC] TRANSDERM (11:55)
[2019-09-01] MEDS ORDERED: PLAVIX75 MG PO (12:00)
[2019-09-01] MEDS ORDERED: BUMEX2 MG PO (12:02)
[2019-09-01] MEDS ORDERED: PREDNISONE10 MG PO (12:03)
[2019-09-01] MEDS ORDERED: IPRAT-ALBUT 0.5-3 ML UPD (12:04)
[2019-09-01] MEDS ORDERED: SINGULAIR10 MG PO (12:05)
--- NOTE | 2019-09-01 13:00 | MORECARE ---
CASE MANAGEMENT DISCHARGE SUMMARY PATIENT: HUSEYIN DAVID JR UNIT: [id number] ADM DATE: 08/27/19 AGE: 53 : 69 SEX: M ROOM/BED: D.2306 AUTHOR: ABDIAZIZ,DOC PHYSICIAN: REFERRING PHYSICIAN: ELVIS RAE DO DATE OF SERVICE: 09/01/19 Discharge Plan Patient Name: HUSEYIN DAVID Facility: [facility]:[place] : 1965 Planned Disposition: Home Anticipated Discharge Date: Discharge Date: Expected LOS: Initial Reviewer: [email or web address] Initial Review Date: 08/29/2019 Generated: 09/01/19 1:59 pm Comments DCP- Discharge Planning Updated by [email or web address]: Deborah Antoine on 08/31/19 11:[address] LATE ENTRY 08/30/19 Patient Name: HUSEYIN DAVID Admission Status: Elective Accout number: [id number] Admission Date: 08-27-2019 : 1965 Admission Diagnosis: Attending: ELVIS RAE Current LOS: 3 Anticipated DC Date: Planned Disposition: Home Primary Insurance: MEDICAID [place] Discharge Planning Comments: CM met with patient at bedside after explaining CM role and obtaining verbal consent. Patient lives at home with his mother or girlfriend where he is independent with his care and plans to return there upon discharge. Patient feels this would be a safe discharge. CM discussed availability / needs of home health and medical equipment. Patient states he is scheduled for a sleep study 09/30/19 to see if he can get CPAP. Patient may need walk test if he still requires 02 @ discharge. Patient denies any discharge needs at this time. Patient states he will have his family drive him home upon discharge. CM will continue to follow and assist as needed with discharge planning / needs. Extension Work Instructor: Deborah Antoine DCPIA - Discharge Planning Initial Assessment Updated by [email or web address]: Deborah Antoine on 08/31/19 12:30 pm * Is the patient Alert and Oriented? Yes * How many steps to enter\exit or inside your home? RAMP * P[facility] * [facility] * Preadmission Environment Home with Family * ADLs Independent * Equipment None * List name and contact numbers for known caregivers / representatives who currently or will assist patient after discharge: KATINA DAVID - MOTHER- [phone] * Verbal permission to speak to the caregivers and representatives has been obtained from the patient. Yes * Community resources currently utilized None * Additional services required to return to the preadmission environment? No * Can the patient safely return to the preadmission environment? Yes * Has this patient been hospitalized within the prior 30 days at any hospital? No External Providers External Provider: Vannessa Tran Contact Date: Service Request Date: Service Type: Resolution: Reviewer: Comments: Last DP export: 08/31/19 11:40 a Patient Name: HUSEYIN DAVID Page [phone] at 1300 All edits/amendments must be made on the electronic document DICTATION DATE: 09/01/191258 CRYSTAL REPORT DEVELOPER: KRISTINE 09/01/19 1259 RPT#: [id number] CO DATE: STATUS: ADM IN [facility] [address] [place] [address] END OF REPORT
--- NOTE | 2019-09-01 13:33 | NUR ---
DISCHARGE TEACHING PROVIDED AND PAPERS SIGNED. PT VERBALIZED UNDERSTANDING AND DENIES ANY QUESTIONS OR CONCERNS. ALL BELONGINGS COLLECTED AND SENT WITH PT. D/C PTS R.FA PIV WITH CATHETER TIP FULLY INTACT. REMOVED 9CC OF FLUID FROM PATINO BALLOON AND REMOVED PATINO CATHETER WITH TIP FULLY INTACT. PTS AT BEDSIDE FOR TRANSPORTATION. NO FURTHER NEEDS AT THIS TIME. WILL ESCORT HIM DOWN.
--- NOTE | 2019-09-01 14:49 | NUR ---
patient wheeled out via wheelchair
--- NOTE | 2019-09-01 16:48 | OP ---
PATIENT NAME: HUSEYIN DAVID JR MEDICAL RECORD: [id number] :[birth year] LOCATION:D[facility] D.2306 ADMISSION DATE:08/27/19 SURGEON: LOI SINGH MD DATE OF OPERATION: 08/30/2019 DATE OF SERVICE: 08/30/2019 PROCEDURES: 1. Left heart catheterization. 2. Selective coronary angiography. 3. Left ventriculogram. INDICATION: Non-Q-wave myocardial infarction, respiratory failure. PROCEDURE PERFORMED: After informed consent was obtained and after a detailed description of risks, benefits as well as alternative therapies, the patient elected to proceed with angiogram and heart catheterization. The right radial area was prepped and draped in normal sterile fashion. Right radial artery was cannulated via modified Seldinger technique with placement of 5-Yi sheath. All catheters exchanged through this sheath. FINDINGS: Left ventriculogram was performed in standard 30-degree YODER view, reveals mild global hypokinesis, ejection fraction 40%. SELECTIVE CORONARY ANGIOGRAPHY: Left main, left anterior descending, left circumflex, right coronary artery are all smooth-walled vessels with no angiographic evidence of coronary artery disease. OVERALL IMPRESSION: 1. No angiographic evidence of coronary artery disease. 2. Normal left heart pressures. 3. Normal left ventricular function. Non-Q-wave myocardial infarction was demand ischemia secondary to the respiratory failure. Center medical management on treatment of the respiratory failure. TRANSINT:[id number] Voice Confirmation ID: [id number] DOCUMENT ID: [id number] LOI SINGH MD at 1648 CC: [id number] DICTATION DATE: 08/30/19 0916 SENIOR PRODUCTION MANAGER: 08/30/19 1028 DIS IN 09/01/19 [address] [place] [address]
--- NOTE | 2019-09-01 18:14 | MORECARE ---
CASE MANAGEMENT DISCHARGE SUMMARY PATIENT: HUSEYIN DAVID JR UNIT: [id number] ADM DATE: 08/27/19 AGE: 53 : 69 SEX: M ROOM/BED: D.2306 AUTHOR: ABDIAZIZ,DOC PHYSICIAN: REFERRING PHYSICIAN: ELVIS RAE DO DATE OF SERVICE: 09/01/19 Discharge Plan Patient Name: HUSEYIN DAVID Facility: [facility]:[place] : 1965 Planned Disposition: Home Anticipated Discharge Date: Discharge Date: 09/01/2019 Expected LOS: Initial Reviewer: [email or web address] Initial Review Date: 08/29/2019 Generated: 09/01/19 7:13 pm Comments DCP- Discharge Planning Updated by [email or web address]: Deborah Antoine on 08/31/19 11:[address] LATE ENTRY 08/30/19 Patient Name: HUSEYIN DAVID Admission Status: Elective Accout number: [id number] Admission Date: 08-27-2019 : 1965 Admission Diagnosis: Attending: ELVIS RAE Current LOS: 3 Anticipated DC Date: Planned Disposition: Home Primary Insurance: MEDICAID [place] Discharge Planning Comments: CM met with patient at bedside after explaining CM role and obtaining verbal consent. Patient lives at home with his mother or girlfriend where he is independent with his care and plans to return there upon discharge. Patient feels this would be a safe discharge. CM discussed availability / needs of home health and medical equipment. Patient states he is scheduled for a sleep study 09/30/19 to see if he can get CPAP. Patient may need walk test if he still requires 02 @ discharge. Patient denies any discharge needs at this time. Patient states he will have his family drive him home upon discharge. CM will continue to follow and assist as needed with discharge planning / needs. Army Helicopter Pilot: Deborah Antoine DCPIA - Discharge Planning Initial Assessment Updated by [email or web address]: Deborah Antoine on 08/31/19 12:30 pm * Is the patient Alert and Oriented? Yes * How many steps to enter\exit or inside your home? RAMP * PCP [facility] [place] * [facility] * Preadmission Environment Home with Family * ADLs Independent * Equipment None * List name and contact numbers for known caregivers / representatives who currently or will assist patient after discharge: KATINA DAVID - MOTHER- [phone] * Verbal permission to speak to the caregivers and representatives has been obtained from the patient. Yes * Community resources currently utilized None * Additional services required to return to the preadmission environment? No * Can the patient safely return to the preadmission environment? Yes * Has this patient been hospitalized within the prior 30 days at any hospital? No Last DP export: 09/01/19 12:00 p Patient Name: HUSEYIN DAVID Page [id number] at 1814 All edits/amendments must be made on the electronic document DICTATION DATE: 09/01/191812 ELECTRICIAN'S ASSISTANT: KRISTINE 09/01/191812 RPT#: [id number] DC DATE:09/01/19 STATUS: DIS IN [facility] [address] [place] [address] END OF REPORT
--- NOTE | 2019-09-01 18:29 | MORECARE ---
CASE MANAGEMENT DISCHARGE SUMMARY PATIENT: HUSEYIN DAVID JR UNIT: [id number] ADM DATE: 08/27/19 AGE: 53 : 69 SEX: M ROOM/BED: D.2306 AUTHOR: ABDIAZIZ,DOC PHYSICIAN: REFERRING PHYSICIAN: ELVIS RAE DO DATE OF SERVICE: 09/01/19 Discharge Plan Patient Name: HUSEYIN DAVID Facility: [facility]:[place] : 1965 Planned Disposition: Home Anticipated Discharge Date: Discharge Date: 09/01/2019 Expected LOS: Initial Reviewer: [email or web address] Initial Review Date: 08/29/2019 Generated: 09/01/19 7:28 pm Comments DCP- Discharge Planning Updated by [email or web address]: Deborah Antoine on 09/01/19 5:[address] Patient Name: HUSEYIN DAVID Encounter No: [id number] : 1965 Primary Insurance: MEDICAID [place] Anticipated DC Date: Planned Disposition: Home External Planned Provider: : [employer] set up home 02 and portable and nebulizer. [employer] delivered portable tank to room and to deliver home unit to girlfriend's home. Patient refused home health and refusal signed. SAYRA for [employer] signed. CM called [facility] to see if sleep study could be moved up. They stated that there isn't any openings but they would put him at top of list if they have a cancellation. DCP follow-up note: Patient and family in agreement with discharge plan. No changes to plan. Case management will follow and assist as needed. Deborah Antoine DCP- Discharge Planning Updated by [email or web address]: Deborah Antoine on 08/31/19 11:[address] LATE ENTRY 08/30/19 Patient Name: HUSEYIN DAVID Admission Status: Elective Accout number: [id number] Admission Date: 08-27-2019 : 1965 Admission Diagnosis: Attending: ELVIS RAE Current LOS: 3 Anticipated DC Date: Planned Disposition: Home Primary Insurance: MEDICAID [place] Discharge Planning Comments: CM met with patient at bedside after explaining CM role and obtaining verbal consent. Patient lives at home with his mother or girlfriend where he is independent with his care and plans to return there upon discharge. Patient feels this would be a safe discharge. CM discussed availability / needs of home health and medical equipment. Patient states he is scheduled for a sleep study 09/30/19 to see if he can get CPAP. Patient may need walk test if he still requires 02 @ discharge. Patient denies any discharge needs at this time. Patient states he will have his family drive him home upon discharge. CM will continue to follow and assist as needed with discharge planning / needs. Professor Of Vegetable Science: Deborah Antoine DCPIA - Discharge Planning Initial Assessment Updated by [email or web address]: Deborah Antoine on 08/31/19 12:30 pm * Is the patient Alert and Oriented? Yes * How many steps to enter\exit or inside your home? RAMP * P[facility] [place] * [facility] * Preadmission Environment Home with Family * ADLs Independent * Equipment None * List name and contact numbers for known caregivers / representatives who currently or will assist patient after discharge: KATINA DAVID - MOTHER- [phone] * Verbal permission to speak to the caregivers and representatives has been obtained from the patient. Yes * Community resources currently utilized None * Additional services required to return to the preadmission environment? No * Can the patient safely return to the preadmission environment? Yes * Has this patient been hospitalized within the prior 30 days at any hospital? No Coverage Notice Reviewer: [id number] - Deborah Antoine Notice Issued Date-Time: 09/01/2019 11:45 Notice Type: Patient Choice Letter Notice Delivered To: Patient Relationship to Patient: Self Residential Program Director Name: Delivery Method: HAND - Hand Delivered Sujata Days: Prior Verbal Notification: Recipient Understood Notice: Yes Recipient Signature: Yes Med Rec Note Co-signed by Attending: Coverage Notice Comment: SAYRA SIGNED FOR [facility] DECLINATION SIGNED FOR HOME HEALTH Last DP export: 09/01/19 5:14 p Patient Name: HUSEYIN DAVID Page [id number] at 1829 All edits/amendments must be made on the electronic document DICTATION DATE: 09/01/191827 SENIOR DENTIST: KRISTINE 09/01/191827 RPT#: [id number] DC DATE:09/01/19 STATUS: DIS IN [facility] [address] [place] [address] END OF REPORT
== END 2019-09-01 15:01 | disposition home or self-care (01) | DRG 280 ==
LOC: D.ICU 12:27
PROVIDERS: Internal Medicine Interventional Cardiology; ADMIT Family Medicine; ATTEND Family Medicine
PROC: B2151ZZ Fluoroscopy of Left Heart using Low Osmolar Contrast (ICD-10-PCS; 2019-08-30)
PROC: 4A023N7 Measurement of Cardiac Sampling and Pressure, Left Heart, Percutaneous Approach (ICD-10-PCS; 2019-08-30)
PROC: B2111ZZ Fluoroscopy of Multiple Coronary Arteries using Low Osmolar Contrast (ICD-10-PCS; principal; 2019-08-30 11:30)
DX: I21.4 Non-ST elevation (NSTEMI) myocardial infarction (principal); J96.02 Acute respiratory failure with hypercapnia; J96.01 Acute respiratory failure with hypoxia; J18.9 Pneumonia, unspecified organism; I50.23 Acute on chronic systolic (congestive) heart failure; J81.1 Chronic pulmonary edema; J44.1 Chronic obstructive pulmonary disease with (acute) exacerbation; F17.203 Nicotine dependence unspecified, with withdrawal; N39.0 Urinary tract infection, site not specified; N17.9 Acute kidney failure, unspecified; I10 Essential (primary) hypertension; E78.5 Hyperlipidemia, unspecified; G47.33 Obstructive sleep apnea (adult) (pediatric); E11.65 Type 2 diabetes mellitus with hyperglycemia; E11.40 Type 2 diabetes mellitus with diabetic neuropathy, unspecified; J45.909 Unspecified asthma, uncomplicated; E66.01 Morbid (severe) obesity due to excess calories; I25.10 Atherosclerotic heart disease of native coronary artery without angina pectoris; Z91.19 Patient's noncompliance with other medical treatment and regimen

== ENCOUNTER → 2020-01-20 11:53 | Outpatient (CLI) | payer MEDICAID ==
[2019-08-29 12:26] VITALS: BMI 55.9
[~2020-01-20 11:53] MED LIST changes: +IPRAT-ALBUT 0.5-3 ML UPD; +Nicoderm [PBKC] TRANSDERM; +PLAVIX75 MG PO; +PREDNISONE10 MG PO; +SINGULAIR10 MG PO
== END | disposition home or self-care (01) ==
LOC: D.RAD 01-19 13:00
PROVIDERS: ATTEND Pediatrics
DX: Z02.71 Encounter for disability determination (principal)